=== PATIENT | male | born 1965 | race African-American/Black ===

== ENCOUNTER 2021-07-02 11:01 | Inpatient (IN) | payer BC ==
[2021-07-02] MEDS ORDERED: BENZOCAINE/MENTHOL (CHLORASEPTIC ) LOZENGE MM PRN (13:07)
[2021-07-02] MEDS ORDERED: ACETAMINOPHEN 325 MG TABLET (FP) PO PRN ×2 (13:07)
[2021-07-02] MEDS ORDERED: DICYCLOMINE HCL 10 MG CAPSULE PO PRN (13:07)
[2021-07-02] MEDS ORDERED: ONDANSETRON *ODT* 4 MG TABLET SL PRN (13:07)
[2021-07-02] MEDS ORDERED: MAGNESIUM HYDROX 2400MG/30ML ORAL SUSPENSION 30 ML CUP PO PRN (13:07)
[2021-07-02] MEDS ORDERED: MAG HYDROX/AL HYDROX/SIMETH 30 ML UNIT-DOSE CUP PO PRN (13:07)
[2021-07-02] MEDS ORDERED: BISMUTH SUBSALICYLATE 262 MG/15 ML BTL PO PRN (13:07)
[2021-07-02] MEDS ORDERED: NALOXONE HCL (KLOXXADO) 8 MG SPRAY NS PRN (13:07)
[2021-07-02] MEDS ORDERED: chlordiazePOXIDE HCL 25 MG CAPSULE PO PRN (13:07)
[2021-07-02] MEDS ORDERED: MAGNESIUM CITRATE 300 ML BOTTLE PO PRN (13:07)
[2021-07-02] MEDS ORDERED: LOPERAMIDE HCL 2 MG CAPSULE PO PRN (13:07)
[2021-07-02 13:50] VITALS: BMI 30.6
[2021-07-02] MEDS: FAMOTIDINE 20 MG TABLET PO SCH ×2 (15:34→22:24)
[2021-07-02] MEDS: hydrOXYzine PAMOATE 25 MG CAPSULE (FP) PO SCH ×3 (15:34→22:24)
[2021-07-02] MEDS: IBUPROFEN 400 MG TABLET (FP) PO PRN (15:35)
[2021-07-02] MEDS: amLODIPine BESYLATE 5 MG TABLET (FP) PO SCH (15:35)
[2021-07-02] MEDS: HYDROCHLOROTHIAZIDE 12.5 MG CAPSULE (FP) PO SCH (15:56)
[2021-07-02] MEDS: NICOTINE 10 MG CARTRIDGE (INHALER) IH PRN (16:01)
[2021-07-02] MEDS: chlordiazePOXIDE HCL 25 MG CAPSULE PO SCH ×2 (18:14→22:24)
[2021-07-02] MEDS: THIAMINE HCL 100 MG TABLET (FP) PO SCH (22:24)
[2021-07-02] MEDS: MELATONIN 5 MG TABLETS PO SCH (22:25)
[2021-07-03] MEDS: hydrOXYzine PAMOATE 25 MG CAPSULE (FP) PO SCH ×5 (06:00→23:39)
[2021-07-03] MEDS: chlordiazePOXIDE HCL 25 MG CAPSULE PO SCH ×4 (06:00→23:39)
[2021-07-03 09:56] LABS: HEMATOCRIT 37.8 % (35.4-49); HEMOGLOBIN 12.5 GM/dL (11.7-16.9); MCH 27.8 pg (25.7-33.7); MCHC 32.9 g/dl (32.0-35.9); MEAN CELL VOLUME 84.5 fl (80-96); MEAN PLT VOLUME 9.8 fl (7.5-11.1); PLATELET COUNT 198 10^3/uL (134-434); RBC 4.47 M/mm3 (4.00-5.60); RDW 15.1 % (11.9-15.9); WHITE BLOOD COUNT 4.8 K/mm3 (4.0-10.0)
[2021-07-03 10:23] LABS: BLOOD UREA NITROGEN 10.6 mg/dL (7-18); TOT PROT 7.5 g/dl (6.4-8.2)
[2021-07-03 10:24] LABS: CALCIUM 9.3 mg/dL (8.5-10.1)
[2021-07-03 10:25] LABS: BILIRUBIN,TOTAL 0.3 mg/dL (0.2-1)
[2021-07-03] MEDS: FAMOTIDINE 20 MG TABLET PO SCH ×2 (10:47→23:39)
[2021-07-03] MEDS: amLODIPine BESYLATE 5 MG TABLET (FP) PO SCH (10:47)
[2021-07-03] MEDS: HYDROCHLOROTHIAZIDE 12.5 MG CAPSULE (FP) PO SCH (10:47)
[2021-07-03] MEDS: PRENATAL VITAMINS W/ FOLIC ACID TABLET (FP) PO SCH (10:48)
[2021-07-03] MEDS: ARIPiprazole 10 MG TABLET PO SCH (10:49)
[2021-07-03] MEDS: METHOCARBAMOL 500 MG TABLET PO PRN (17:58)
[2021-07-03] MEDS: MELATONIN 5 MG TABLETS PO SCH (23:39)
[2021-07-03] MEDS: THIAMINE HCL 100 MG TABLET (FP) PO SCH (23:39)
[2021-07-04] MEDS: IBUPROFEN 400 MG TABLET (FP) PO PRN (05:06)
[2021-07-04] MEDS: chlordiazePOXIDE HCL 25 MG CAPSULE PO SCH ×4 (05:06→23:10)
[2021-07-04] MEDS: hydrOXYzine PAMOATE 25 MG CAPSULE (FP) PO SCH ×5 (05:06→23:10)
[2021-07-04] MEDS: PRENATAL VITAMINS W/ FOLIC ACID TABLET (FP) PO SCH (10:28)
[2021-07-04] MEDS: ARIPiprazole 10 MG TABLET PO SCH (10:28)
[2021-07-04] MEDS: amLODIPine BESYLATE 5 MG TABLET (FP) PO SCH (10:28)
[2021-07-04] MEDS: FAMOTIDINE 20 MG TABLET PO SCH ×2 (10:28→23:09)
[2021-07-04] MEDS: METHOCARBAMOL 500 MG TABLET PO PRN (10:28)
[2021-07-04] MEDS: HYDROCHLOROTHIAZIDE 12.5 MG CAPSULE (FP) PO SCH (10:28)
[2021-07-04 14:10] LABS: SARS-CoV-2 NAA Not Detected (Not Detected)
[2021-07-04] MEDS: NICOTINE 10 MG CARTRIDGE (INHALER) IH PRN (18:00)
[2021-07-04] MEDS: MELATONIN 5 MG TABLETS PO SCH (23:09)
[2021-07-04] MEDS: THIAMINE HCL 100 MG TABLET (FP) PO SCH (23:10)
[2021-07-05] MEDS ORDERED: chlordiazePOXIDE HCL 10 MG CAPSULE PO PRN
[2021-07-05] MEDS: chlordiazePOXIDE HCL 10 MG CAPSULE PO SCH ×4 (05:33→22:58)
[2021-07-05] MEDS: hydrOXYzine PAMOATE 25 MG CAPSULE (FP) PO SCH ×5 (05:33→22:58)
[2021-07-05] MEDS: PRENATAL VITAMINS W/ FOLIC ACID TABLET (FP) PO SCH (10:16)
[2021-07-05] MEDS: FAMOTIDINE 20 MG TABLET PO SCH ×2 (10:17→22:50)
[2021-07-05] MEDS: HYDROCHLOROTHIAZIDE 12.5 MG CAPSULE (FP) PO SCH (10:17)
[2021-07-05] MEDS: amLODIPine BESYLATE 5 MG TABLET (FP) PO SCH (10:17)
[2021-07-05] MEDS: ARIPiprazole 10 MG TABLET PO SCH (10:17)
[2021-07-05] MEDS: IBUPROFEN 400 MG TABLET (FP) PO PRN (10:17)
[2021-07-05] MEDS: METHOCARBAMOL 500 MG TABLET PO PRN (10:18)
[2021-07-05] MEDS: NICOTINE 10 MG CARTRIDGE (INHALER) IH PRN (10:20)
[2021-07-05] MEDS ORDERED: amLODIPine BESYLATE 5 MG TABLET (FP) PO ONE (17:00)
[2021-07-05] MEDS: MELATONIN 5 MG TABLETS PO SCH (22:49)
[2021-07-05] MEDS: THIAMINE HCL 100 MG TABLET (FP) PO SCH (22:50)
[2021-07-06] MEDS ORDERED: chlordiazePOXIDE HCL 10 MG CAPSULE PO SCH (05:00)
[2021-07-06] MEDS: hydrOXYzine PAMOATE 25 MG CAPSULE (FP) PO SCH ×3 (05:27→13:51)
[2021-07-06] MEDS: IBUPROFEN 400 MG TABLET (FP) PO PRN (05:29)
[2021-07-06] MEDS: NICOTINE 10 MG CARTRIDGE (INHALER) IH PRN ×2 (06:09→10:07)
[2021-07-06] MEDS ORDERED: amLODIPine BESYLATE 5 MG TABLET (FP) PO SCH (10:00)
[2021-07-06] MEDS: ARIPiprazole 10 MG TABLET PO SCH (10:02)
[2021-07-06] MEDS: HYDROCHLOROTHIAZIDE 12.5 MG CAPSULE (FP) PO SCH (10:02)
[2021-07-06] MEDS: PRENATAL VITAMINS W/ FOLIC ACID TABLET (FP) PO SCH (10:02)
[2021-07-06] MEDS: FAMOTIDINE 20 MG TABLET PO SCH (10:02)
[2021-07-06] MEDS: METHOCARBAMOL 500 MG TABLET PO PRN (10:05)
[2021-07-06] MEDS ORDERED: VALSARTAN 40 MG TABLET PO SCH (12:30)
[2021-07-06 13:10] VITALS: BP 135/77; PULSE 77; TEMP 97.3
[2021-07-06 18:03] LABS: EPI CELLS 2 /uL (0-25.1); HYALINE CASTS 0 /uL (0-3.1); PH,URINE 8.5 (5.0-8.0); URINE APPEARANCE CLEAR; URINE BACTERIA 10 /uL (0-1359); URINE BILIRUBIN NEGATIVE (NEGATIVE); URINE COLOR YELLOW; URINE GLUCOSE (UA) NEGATIVE (NEGATIVE); URINE KETONE NEGATIVE (NEGATIVE); URINE LEUK ESTERASE NEGATIVE (NEGATIVE); URINE NITRITE NEGATIVE (NEGATIVE); URINE PROTEIN NEGATIVE (NEGATIVE); URINE RBC 4 /uL (0-23.9); URINE UROBILINOGEN 0.2 mg/dL (0.2-1.0); URINE WBC 5 /uL (0-25.8)
[2021-07-07] MEDS ORDERED: chlordiazePOXIDE HCL 10 MG CAPSULE PO ONE (05:00)
== END 2021-07-06 15:02 | disposition home or self-care (01) | DRG 774 ==
LOC: YASAS 11:01 → Y6N 14:38
PROVIDERS: ADMIT Allergy & Immunology; ATTEND Surgery
PROC: HZ2ZZZZ Detoxification Services for Substance Abuse Treatment (ICD-10-PCS; principal; 2021-07-02)
DX: F10.230 Alcohol dependence with withdrawal, uncomplicated (principal); F14.10 Cocaine abuse, uncomplicated; F16.20 Hallucinogen dependence, uncomplicated; F12.20 Cannabis dependence, uncomplicated; F17.210 Nicotine dependence, cigarettes, uncomplicated; F25.9 Schizoaffective disorder, unspecified; F31.9 Bipolar disorder, unspecified; I10 Essential (primary) hypertension; K21.9 Gastro-esophageal reflux disease without esophagitis
CPT/HCPCS: 36415; 80053; 81003; 85027; 86780; C9803-CS; Q0162; U0003; U0005

== ENCOUNTER 2021-09-16 15:07 | Inpatient (IN) | payer BC ==
[2021-09-16 16:29] VITALS: BMI 29.5
[2021-09-16] MEDS ORDERED: METHOCARBAMOL 500 MG TABLET PO PRN (18:42)
[2021-09-16] MEDS ORDERED: MAG HYDROX/AL HYDROX/SIMETH 30 ML UNIT-DOSE CUP PO PRN (18:42)
[2021-09-16] MEDS ORDERED: BENZOCAINE/MENTHOL (CHLORASEPTIC ) LOZENGE MM PRN (18:42)
[2021-09-16] MEDS ORDERED: DICYCLOMINE HCL 10 MG CAPSULE PO PRN (18:42)
[2021-09-16] MEDS ORDERED: ONDANSETRON *ODT* 4 MG TABLET SL PRN (18:42)
[2021-09-16] MEDS ORDERED: ACETAMINOPHEN 325 MG TABLET (FP) PO PRN ×2 (18:42)
[2021-09-16] MEDS ORDERED: IBUPROFEN 400 MG TABLET (FP) PO PRN (18:42)
[2021-09-16] MEDS ORDERED: MAGNESIUM HYDROX 2400MG/30ML ORAL SUSPENSION 30 ML CUP PO PRN (18:42)
[2021-09-16] MEDS ORDERED: LOPERAMIDE HCL 2 MG CAPSULE PO PRN (18:42)
[2021-09-16] MEDS ORDERED: BISMUTH SUBSALICYLATE 524 MG/30 ML PO PRN (18:42)
[2021-09-16] MEDS ORDERED: MAGNESIUM CITRATE 300 ML BOTTLE PO PRN (18:42)
[2021-09-16] MEDS ORDERED: chlordiazePOXIDE HCL 25 MG CAPSULE PO PRN (18:42)
[2021-09-16] MEDS ORDERED: chlordiazePOXIDE HCL 25 MG CAPSULE ONE (19:58)
[2021-09-16] MEDS: chlordiazePOXIDE HCL 25 MG CAPSULE PO SCH ×2 (20:00→22:09)
[2021-09-16] MEDS ORDERED: DIVALPROEX SODIUM 500 MG TABLET E.C. PO ONE (22:00)
[2021-09-16] MEDS: MELATONIN 5 MG TABLETS PO SCH (22:11)
[2021-09-16] MEDS: hydrOXYzine PAMOATE 25 MG CAPSULE (FP) PO SCH (22:11)
[2021-09-16] MEDS: THIAMINE HCL 100 MG TABLET (FP) PO SCH (22:11)
[2021-09-16] MEDS: NICOTINE 10 MG CARTRIDGE (INHALER) IH PRN (22:15)
[2021-09-17] MEDS: chlordiazePOXIDE HCL 25 MG CAPSULE PO SCH ×4 (06:07→22:51)
[2021-09-17] MEDS: hydrOXYzine PAMOATE 25 MG CAPSULE (FP) PO SCH ×5 (06:08→22:51)
[2021-09-17 10:34] LABS: HEMATOCRIT 35.4 % (35.4-49); MCH 28.1 pg (25.7-33.7); MCHC 33.9 g/dl (32.0-35.9); MEAN CELL VOLUME 82.7 fl (80-96); MEAN PLT VOLUME 8.8 fl (7.5-11.1); PLATELET COUNT 242 10^3/uL (134-434); RBC 4.28 M/mm3 (4.00-5.60); RDW 14.7 % (11.9-15.9); WHITE BLOOD COUNT 6.1 K/mm3 (4.0-10.0)
[2021-09-17] MEDS: amLODIPine BESYLATE 10 MG TABLET (FP) PO SCH (10:36)
[2021-09-17] MEDS: LOSARTAN POTASSIUM 50 MG TABLET PO SCH (10:36)
[2021-09-17] MEDS: PRENATAL VITAMINS W/ FOLIC ACID TABLET (FP) PO SCH (10:36)
[2021-09-17] MEDS: NICOTINE 10 MG CARTRIDGE (INHALER) IH PRN ×2 (10:36→17:48)
[2021-09-17] MEDS: IBUPROFEN 600 MG TABLET (FP) PO PRN ×2 (10:40→17:48)
[2021-09-17 10:46] LABS: ALBUMIN 3.7 g/dl (3.4-5.0); CALCIUM 9.1 mg/dL (8.5-10.1)
[2021-09-17 10:49] LABS: BLOOD UREA NITROGEN 16.8 mg/dL (7-18)
[2021-09-17 10:50] LABS: BILIRUBIN,TOTAL 0.2 mg/dL (0.2-1)
[2021-09-17 10:52] LABS: CREATININE 0.9 mg/dL (0.55-1.3)
[2021-09-17] MEDS: MELATONIN 5 MG TABLETS PO SCH (22:50)
[2021-09-17] MEDS: DIVALPROEX SODIUM 500 MG TABLET E.C. PO SCH (22:51)
[2021-09-17] MEDS: THIAMINE HCL 100 MG TABLET (FP) PO SCH (22:51)
[2021-09-18] MEDS: chlordiazePOXIDE HCL 25 MG CAPSULE PO SCH ×2 (06:07→10:11)
[2021-09-18] MEDS: hydrOXYzine PAMOATE 25 MG CAPSULE (FP) PO SCH ×2 (06:07→10:11)
[2021-09-18 06:58] VITALS: RESP 18
[2021-09-18 09:16] VITALS: BP 148/89; PULSE 73; TEMP 97.7
[2021-09-18] MEDS: amLODIPine BESYLATE 10 MG TABLET (FP) PO SCH (10:11)
[2021-09-18] MEDS: DIVALPROEX SODIUM 500 MG TABLET E.C. PO SCH (10:11)
[2021-09-18] MEDS: PRENATAL VITAMINS W/ FOLIC ACID TABLET (FP) PO SCH (10:11)
[2021-09-18] MEDS: LOSARTAN POTASSIUM 50 MG TABLET PO SCH (10:11)
[2021-09-18] MEDS: IBUPROFEN 600 MG TABLET (FP) PO PRN (10:13)
[2021-09-19] MEDS ORDERED: chlordiazePOXIDE HCL 10 MG CAPSULE PO PRN
[2021-09-19] MEDS ORDERED: chlordiazePOXIDE HCL 10 MG CAPSULE PO SCH (05:00)
[2021-09-20] MEDS ORDERED: chlordiazePOXIDE HCL 10 MG CAPSULE PO SCH (05:00)
[2021-09-21] MEDS ORDERED: chlordiazePOXIDE HCL 10 MG CAPSULE PO ONE (05:00)
== END 2021-09-18 12:39 | disposition left against medical advice (07) | DRG 770 ==
LOC: YASAS 15:07 → Y3N 21:10
PROVIDERS: ADMIT Allergy & Immunology; ATTEND Surgery
PROC: HZ2ZZZZ Detoxification Services for Substance Abuse Treatment (ICD-10-PCS; principal; 2021-09-16)
DX: F10.230 Alcohol dependence with withdrawal, uncomplicated (principal); F16.20 Hallucinogen dependence, uncomplicated; F12.20 Cannabis dependence, uncomplicated; F17.210 Nicotine dependence, cigarettes, uncomplicated; F31.9 Bipolar disorder, unspecified; I10 Essential (primary) hypertension; Z87.828 Personal history of other (healed) physical injury and trauma; Z56.0 Unemployment, unspecified
CPT/HCPCS: 36415; 80053; 80164; 85027; 86780; 87811; C9803-CS; U0003; U0005

== ENCOUNTER 2021-11-27 08:53 | Inpatient (IN) | payer BC ==
[2021-11-27 09:25] VITALS: BMI 28.2
[2021-11-27] MEDS ORDERED: NICOTINE POLACRILEX 2 MG GUM BUC PRN (09:46)
[2021-11-27] MEDS ORDERED: NALOXONE HCL (KLOXXADO) 8 MG SPRAY NS PRN (09:46)
[2021-11-27] MEDS ORDERED: MAGNESIUM CITRATE 300 ML BOTTLE PO PRN (09:46)
[2021-11-27] MEDS ORDERED: METHOCARBAMOL 500 MG TABLET PO PRN (09:46)
[2021-11-27] MEDS ORDERED: LOPERAMIDE HCL 2 MG CAPSULE PO PRN (09:46)
[2021-11-27] MEDS ORDERED: ACETAMINOPHEN 325 MG TABLET (FP) PO PRN ×2 (09:46)
[2021-11-27] MEDS ORDERED: DICYCLOMINE HCL 10 MG CAPSULE PO PRN (09:46)
[2021-11-27] MEDS ORDERED: BENZOCAINE/MENTHOL (CHLORASEPTIC ) LOZENGE MM PRN (09:46)
[2021-11-27] MEDS ORDERED: IBUPROFEN 600 MG TABLET (FP) PO PRN (09:46)
[2021-11-27] MEDS ORDERED: MAG HYDROX/AL HYDROX/SIMETH 30 ML UNIT-DOSE CUP PO PRN (09:46)
[2021-11-27] MEDS ORDERED: IBUPROFEN 400 MG TABLET (FP) PO PRN (09:46)
[2021-11-27] MEDS ORDERED: MAGNESIUM HYDROX 2400MG/30ML ORAL SUSPENSION 30 ML CUP PO PRN (09:46)
[2021-11-27] MEDS ORDERED: BISMUTH SUBSALICYLATE 262 MG/15 ML BTL PO PRN (09:46)
[2021-11-27] MEDS ORDERED: ONDANSETRON *ODT* 4 MG TABLET SL PRN (09:46)
[2021-11-27] MEDS: LOSARTAN POTASSIUM 50 MG TABLET PO SCH (11:21)
[2021-11-27] MEDS: hydrOXYzine PAMOATE 25 MG CAPSULE (FP) PO SCH ×4 (11:22→22:56)
[2021-11-27] MEDS: amLODIPine BESYLATE 10 MG TABLET (FP) PO SCH (11:22)
[2021-11-27] MEDS: PRENATAL VITAMINS W/ FOLIC ACID TABLET (FP) PO SCH (11:22)
[2021-11-27 14:31] LABS: HEMATOCRIT 38.3 % (35.4-49); HEMOGLOBIN 12.4 GM/dL (11.7-16.9); MCH 27.1 pg (25.7-33.7); MCHC 32.3 g/dl (32.0-35.9); MEAN CELL VOLUME 84.2 fl (80-96); MEAN PLT VOLUME 9.7 fl (7.5-11.1); PLATELET COUNT 256 10^3/uL (134-434); RBC 4.55 M/mm3 (4.00-5.60); RDW 15.1 % (11.9-15.9); WHITE BLOOD COUNT 7.2 K/mm3 (4.0-10.0)
[2021-11-27 15:09] LABS: ALBUMIN 3.8 g/dl (3.4-5.0); CALCIUM 9.2 mg/dL (8.5-10.1)
[2021-11-27 15:10] LABS: BLOOD UREA NITROGEN 14.7 mg/dL (7-18)
[2021-11-27 15:14] LABS: BILIRUBIN,TOTAL 0.2 mg/dL (0.2-1)
[2021-11-27] MEDS ORDERED: chlordiazePOXIDE HCL 25 MG CAPSULE PO PRN (16:55)
[2021-11-27] MEDS: chlordiazePOXIDE HCL 25 MG CAPSULE PO SCH ×2 (17:30→22:55)
[2021-11-27] MEDS ORDERED: MELATONIN 5 MG TABLETS PO SCH (22:00)
[2021-11-27] MEDS: DIVALPROEX SODIUM 500 MG TABLET E.C. PO SCH (22:56)
[2021-11-27] MEDS: traZODone HCL 50 MG TABLET (FP) PO SCH (22:56)
[2021-11-27] MEDS: THIAMINE HCL 100 MG TABLET (FP) PO SCH (22:56)
[2021-11-28] MEDS: hydrOXYzine PAMOATE 25 MG CAPSULE (FP) PO SCH ×5 (05:55→22:53)
[2021-11-28] MEDS: chlordiazePOXIDE HCL 25 MG CAPSULE PO SCH ×4 (05:56→22:54)
[2021-11-28] MEDS: NICOTINE 10 MG CARTRIDGE (INHALER) IH PRN (06:18)
[2021-11-28] MEDS: ARIPiprazole 10 MG TABLET PO SCH (10:43)
[2021-11-28] MEDS: amLODIPine BESYLATE 10 MG TABLET (FP) PO SCH (10:43)
[2021-11-28] MEDS: DIVALPROEX SODIUM 500 MG TABLET E.C. PO SCH ×2 (10:43→22:54)
[2021-11-28] MEDS: LOSARTAN POTASSIUM 50 MG TABLET PO SCH (10:43)
[2021-11-28] MEDS: PRENATAL VITAMINS W/ FOLIC ACID TABLET (FP) PO SCH (10:43)
[2021-11-28] MEDS: traZODone HCL 50 MG TABLET (FP) PO SCH (22:53)
[2021-11-28] MEDS: THIAMINE HCL 100 MG TABLET (FP) PO SCH (22:55)
[2021-11-29] MEDS: hydrOXYzine PAMOATE 25 MG CAPSULE (FP) PO SCH ×5 (07:32→23:22)
[2021-11-29] MEDS: chlordiazePOXIDE HCL 10 MG CAPSULE PO SCH ×4 (07:32→23:23)
[2021-11-29] MEDS: LOSARTAN POTASSIUM 50 MG TABLET PO SCH (10:27)
[2021-11-29] MEDS: ARIPiprazole 10 MG TABLET PO SCH (10:27)
[2021-11-29] MEDS: PRENATAL VITAMINS W/ FOLIC ACID TABLET (FP) PO SCH (10:27)
[2021-11-29] MEDS: amLODIPine BESYLATE 10 MG TABLET (FP) PO SCH (10:27)
[2021-11-29] MEDS: DIVALPROEX SODIUM 500 MG TABLET E.C. PO SCH ×2 (10:27→23:22)
[2021-11-29] MEDS: THIAMINE HCL 100 MG TABLET (FP) PO SCH (23:22)
[2021-11-29] MEDS: traZODone HCL 50 MG TABLET (FP) PO SCH (23:22)
[2021-11-29] MEDS: NICOTINE 10 MG CARTRIDGE (INHALER) IH PRN (23:36)
[2021-11-30] MEDS ORDERED: chlordiazePOXIDE HCL 10 MG CAPSULE PO PRN
[2021-11-30] MEDS ORDERED: chlordiazePOXIDE 5 MG CAPSULE ONE (04:05)
[2021-11-30] MEDS: hydrOXYzine PAMOATE 25 MG CAPSULE (FP) PO SCH ×5 (05:57→23:30)
[2021-11-30] MEDS: chlordiazePOXIDE HCL 10 MG CAPSULE PO SCH ×2 (05:57→18:41)
[2021-11-30] MEDS: LOSARTAN POTASSIUM 50 MG TABLET PO SCH (10:37)
[2021-11-30] MEDS: ARIPiprazole 10 MG TABLET PO SCH (10:37)
[2021-11-30] MEDS: PRENATAL VITAMINS W/ FOLIC ACID TABLET (FP) PO SCH (10:37)
[2021-11-30] MEDS: DIVALPROEX SODIUM 500 MG TABLET E.C. PO SCH ×2 (10:37→23:31)
[2021-11-30] MEDS: amLODIPine BESYLATE 10 MG TABLET (FP) PO SCH (10:37)
[2021-11-30] MEDS: traZODone HCL 50 MG TABLET (FP) PO SCH (23:31)
[2021-11-30] MEDS: THIAMINE HCL 100 MG TABLET (FP) PO SCH (23:33)
[2021-12-01] MEDS ORDERED: chlordiazePOXIDE HCL 10 MG CAPSULE PO ONE (05:00)
[2021-12-01] MEDS: hydrOXYzine PAMOATE 25 MG CAPSULE (FP) PO SCH (05:59)
[2021-12-01 09:13] VITALS: BP 168/89; PULSE 72; RESP 19; TEMP 97.2
== END 2021-12-01 09:45 | disposition home or self-care (01) | DRG 774 ==
LOC: YASAS 08:53 → Y3N 09:56
PROVIDERS: ADMIT Allergy & Immunology; ATTEND Surgery
PROC: HZ2ZZZZ Detoxification Services for Substance Abuse Treatment (ICD-10-PCS; principal; 2021-11-27)
DX: F10.230 Alcohol dependence with withdrawal, uncomplicated (principal); F14.20 Cocaine dependence, uncomplicated; F12.20 Cannabis dependence, uncomplicated; F17.210 Nicotine dependence, cigarettes, uncomplicated; F25.9 Schizoaffective disorder, unspecified; F31.9 Bipolar disorder, unspecified; F19.24 Other psychoactive substance dependence with psychoactive substance-induced mood disorder; U07.1 COVID-19; G47.00 Insomnia, unspecified; I10 Essential (primary) hypertension; Z91.14 Patient's other noncompliance with medication regimen
CPT/HCPCS: 36415; 80053; 80164; 85027; 86780; 87811; C9803-CS; U0003; U0005

== ENCOUNTER 2022-04-07 12:31 | Inpatient (IN) | payer BC ==
[2022-04-07 13:09] VITALS: BMI 31.2
[2022-04-07] MEDS ORDERED: LOPERAMIDE HCL 2 MG CAPSULE PO PRN (14:53)
[2022-04-07] MEDS ORDERED: POLYETHYLENE GLYCOL (HEALTHYLAX) 3350 17 GM PACKET PO PRN (14:53)
[2022-04-07] MEDS ORDERED: ACETAMINOPHEN 325 MG TABLET (FP) PO PRN (14:53)
[2022-04-07] MEDS ORDERED: guaiFENesin 200 MG/10 ML 10 ML UNIT-DOSE CUPS PO PRN (14:53)
[2022-04-07] MEDS ORDERED: BENZOCAINE/MENTHOL (CHLORASEPTIC ) LOZENGE MM PRN (14:53)
[2022-04-07] MEDS ORDERED: MAGNESIUM HYDROX 2400MG/30ML ORAL SUSPENSION 30 ML CUP PO PRN (14:53)
[2022-04-07] MEDS ORDERED: P-EPHED 60MG/TRIPROLIDI 2.5MG TABLET PO PRN (14:53)
[2022-04-07] MEDS ORDERED: NICOTINE POLACRILEX 2 MG GUM BC PRN (14:53)
[2022-04-07] MEDS ORDERED: NICOTINE 7 MG/24 HOURS TOPICAL PATCH TD PRN (14:53)
[2022-04-07] MEDS: THIAMINE HCL 100 MG TABLET (FP) PO SCH (22:01)
[2022-04-07] MEDS: MELATONIN 5 MG TABLETS PO SCH (22:01)
[2022-04-08] MEDS: MAG HYDROX/AL HYDROX/SIMETH 30 ML UNIT-DOSE CUP PO PRN (06:32)
[2022-04-08] MEDS: IBUPROFEN 400 MG TABLET (FP) PO PRN (06:33)
[2022-04-08] MEDS: PRENATAL VITAMINS W/ FOLIC ACID TABLET (FP) PO SCH (09:57)
[2022-04-08] MEDS: NICOTINE 10 MG CARTRIDGE (INHALER) IH PRN (09:58)
[2022-04-08] MEDS: amLODIPine BESYLATE 10 MG TABLET (FP) PO SCH (11:26)
[2022-04-08] MEDS: metoPROLOL SUCCINATE 25 MG TAB.SR.24H (FP) PO SCH (11:26)
[2022-04-08 12:12] LABS: HEMATOCRIT 34.4 % (35.4-49); HEMOGLOBIN 11.6 GM/dL (11.7-16.9); MCH 28.2 pg (25.7-33.7); MCHC 33.9 g/dl (32.0-35.9); MEAN CELL VOLUME 83.3 fl (80-96); PLATELET COUNT 206 10^3/uL (134-434); RBC 4.12 M/mm3 (4.00-5.60); WHITE BLOOD COUNT 5.7 K/mm3 (4.0-10.0)
[2022-04-08 12:36] LABS: ALBUMIN 3.4 g/dl (3.4-5.0)
[2022-04-08 12:37] LABS: BLOOD UREA NITROGEN 17.9 mg/dL (7-18)
[2022-04-08 12:40] LABS: CREATININE 1.1 mg/dL (0.55-1.3)
[2022-04-08 12:41] LABS: BILIRUBIN,TOTAL 0.3 mg/dL (0.2-1); TOT PROT 6.6 g/dl (6.4-8.2)
[2022-04-08 13:19] LABS: SYPHILIS W/ RPR CONF NON-REACTIVE (NONREACTIVE)
[2022-04-08 16:50] LABS: EPI CELLS 8 /uL (0-25.1); HYALINE CASTS 0 /uL (0-3.1); PH,URINE 8.5 (5.0-8.0); URINE APPEARANCE CLEAR; URINE BACTERIA 43 /uL (0-1359); URINE BILIRUBIN NEGATIVE (NEGATIVE); URINE COLOR YELLOW; URINE GLUCOSE (UA) NEGATIVE (NEGATIVE); URINE KETONE NEGATIVE (NEGATIVE); URINE LEUK ESTERASE TRACE (NEGATIVE); URINE NITRITE NEGATIVE (NEGATIVE); URINE PROTEIN NEGATIVE (NEGATIVE); URINE RBC 29 /uL (0-23.9); URINE WBC 14 /uL (0-25.8)
[2022-04-08] MEDS: THIAMINE HCL 100 MG TABLET (FP) PO SCH (22:54)
[2022-04-08] MEDS: MELATONIN 5 MG TABLETS PO SCH (22:54)
[2022-04-09] MEDS: NICOTINE 10 MG CARTRIDGE (INHALER) IH PRN (08:40)
[2022-04-09] MEDS: PRENATAL VITAMINS W/ FOLIC ACID TABLET (FP) PO SCH (09:34)
[2022-04-09] MEDS: amLODIPine BESYLATE 10 MG TABLET (FP) PO SCH (09:36)
[2022-04-09] MEDS: LOSARTAN POTASSIUM 50 MG TABLET PO SCH (09:36)
[2022-04-09] MEDS: TAMSULOSIN HCL 0.4 MG CAP PO SCH (09:37)
[2022-04-09] MEDS: metoPROLOL SUCCINATE 25 MG TAB.SR.24H (FP) PO SCH (09:55)
[2022-04-09] MEDS ORDERED: LOSARTAN POTASSIUM 50 MG TABLET PO SCH (10:00)
[2022-04-09] MEDS: MELATONIN 5 MG TABLETS PO SCH ×2 (21:54→22:18)
[2022-04-09] MEDS: THIAMINE HCL 100 MG TABLET (FP) PO SCH (21:55)
[2022-04-10] MEDS: NICOTINE 10 MG CARTRIDGE (INHALER) IH PRN ×2 (08:06→12:50)
[2022-04-10] MEDS: TAMSULOSIN HCL 0.4 MG CAP PO SCH (09:47)
[2022-04-10] MEDS: metoPROLOL SUCCINATE 25 MG TAB.SR.24H (FP) PO SCH (09:47)
[2022-04-10] MEDS: amLODIPine BESYLATE 10 MG TABLET (FP) PO SCH (09:47)
[2022-04-10] MEDS: PRENATAL VITAMINS W/ FOLIC ACID TABLET (FP) PO SCH (09:47)
[2022-04-10] MEDS: LOSARTAN POTASSIUM 50 MG TABLET PO SCH (09:48)
[2022-04-10] MEDS ORDERED: cloNIDine HCL 0.1 MG TABLET PO PRN (11:41)
[2022-04-10 12:53] VITALS: RESP 18
[2022-04-10] MEDS: THIAMINE HCL 100 MG TABLET (FP) PO SCH (21:35)
[2022-04-10] MEDS: MELATONIN 5 MG TABLETS PO SCH (21:35)
[2022-04-10] MEDS: hydrOXYzine PAMOATE 25 MG CAPSULE (FP) PO PRN (21:35)
[2022-04-11] MEDS: IBUPROFEN 400 MG TABLET (FP) PO PRN (06:35)
[2022-04-11] MEDS: NICOTINE 10 MG CARTRIDGE (INHALER) IH PRN (06:36)
[2022-04-11] MEDS: ARIPiprazole 10 MG TABLET PO SCH (10:10)
[2022-04-11] MEDS: amLODIPine BESYLATE 10 MG TABLET (FP) PO SCH (10:10)
[2022-04-11] MEDS: metoPROLOL SUCCINATE 25 MG TAB.SR.24H (FP) PO SCH (10:10)
[2022-04-11] MEDS: TAMSULOSIN HCL 0.4 MG CAP PO SCH (10:10)
[2022-04-11] MEDS: LOSARTAN POTASSIUM 50 MG TABLET PO SCH (10:10)
[2022-04-11] MEDS: CITALOPRAM HYDROBROMIDE 10 MG TABLET PO SCH (10:10)
[2022-04-11] MEDS: PRENATAL VITAMINS W/ FOLIC ACID TABLET (FP) PO SCH (10:10)
[2022-04-11] MEDS: MAG HYDROX/AL HYDROX/SIMETH 30 ML UNIT-DOSE CUP PO PRN (16:29)
[2022-04-11] MEDS: THIAMINE HCL 100 MG TABLET (FP) PO SCH (21:03)
[2022-04-11] MEDS: MELATONIN 5 MG TABLETS PO SCH (21:03)
[2022-04-12] MEDS: hydrOXYzine PAMOATE 25 MG CAPSULE (FP) PO PRN (03:40)
[2022-04-12] MEDS: NICOTINE 10 MG CARTRIDGE (INHALER) IH PRN (06:34)
[2022-04-12 07:02] VITALS: TEMP 97.3
[2022-04-12 08:58] VITALS: BP 151/81; PULSE 70
[2022-04-12] MEDS: LOSARTAN POTASSIUM 50 MG TABLET PO SCH (09:35)
[2022-04-12] MEDS: PRENATAL VITAMINS W/ FOLIC ACID TABLET (FP) PO SCH (09:35)
[2022-04-12] MEDS: amLODIPine BESYLATE 10 MG TABLET (FP) PO SCH (09:35)
[2022-04-12] MEDS: TAMSULOSIN HCL 0.4 MG CAP PO SCH (09:35)
[2022-04-12] MEDS: ARIPiprazole 10 MG TABLET PO SCH (09:35)
[2022-04-12] MEDS: metoPROLOL SUCCINATE 25 MG TAB.SR.24H (FP) PO SCH (09:36)
[2022-04-12] MEDS: CITALOPRAM HYDROBROMIDE 10 MG TABLET PO SCH (09:36)
== END 2022-04-12 09:38 | disposition home or self-care (01) | DRG 772 ==
LOC: YASAS 12:31 → Y3W 19:54
PROVIDERS: ADMIT Allergy & Immunology; ATTEND Allergy & Immunology
PROC: HZ42ZZZ Group Counseling for Substance Abuse Treatment, Cognitive-Behavioral (ICD-10-PCS; principal; 2022-04-07)
DX: F16.20 Hallucinogen dependence, uncomplicated (principal); F17.210 Nicotine dependence, cigarettes, uncomplicated; F31.9 Bipolar disorder, unspecified; I10 Essential (primary) hypertension; N40.0 Benign prostatic hyperplasia without lower urinary tract symptoms; E66.9 Obesity, unspecified; Z68.31 Body mass index [BMI] 31.0-31.9, adult; Z86.16 Personal history of COVID-19
CPT/HCPCS: 36415; 80053; 81003; 85027; 86780; 86803; 87811; 93005; 93010; C9803-CS; U0003; U0005

== ENCOUNTER 2022-11-22 10:04 | Inpatient (IN) | payer BC ==
[2022-11-22 10:33] VITALS: BMI 33.3
[2022-11-22] MEDS ORDERED: NALOXONE HCL (KLOXXADO) 8 MG SPRAY NS PRN (11:38)
[2022-11-22] MEDS ORDERED: BISMUTH SUBSALICYLATE 262 MG/15 ML BTL PO PRN (11:38)
[2022-11-22] MEDS ORDERED: DICYCLOMINE HCL 10 MG CAPSULE PO PRN (11:38)
[2022-11-22] MEDS ORDERED: MAGNESIUM HYDROX 2400MG/30ML ORAL SUSPENSION 30 ML CUP PO PRN (11:38)
[2022-11-22] MEDS ORDERED: NALOXONE HCL 0.4 MG/ML VIAL IM PRN (11:38)
[2022-11-22] MEDS ORDERED: BENZONATATE 200 MG CAPSULE PO PRN (11:38)
[2022-11-22] MEDS ORDERED: IBUPROFEN 400 MG TABLET (FP) PO PRN (11:38)
[2022-11-22] MEDS ORDERED: guaiFENesin 600 MG TABLET.ER (FP) PO PRN (11:38)
[2022-11-22] MEDS ORDERED: NICOTINE POLACRILEX 4 MG GUM BUC PRN (11:38)
[2022-11-22] MEDS ORDERED: MAG HYDROX/AL HYDROX/SIMETH 30 ML UNIT-DOSE CUP PO PRN (11:38)
[2022-11-22] MEDS ORDERED: ACETAMINOPHEN 325 MG TABLET (FP) PO PRN (11:38)
[2022-11-22] MEDS ORDERED: hydrOXYzine PAMOATE 25 MG CAPSULE (FP) PO PRN (11:38)
[2022-11-22] MEDS ORDERED: POLYETHYLENE GLYCOL (HEALTHYLAX) 3350 17 GM PACKET PO PRN (11:38)
[2022-11-22] MEDS ORDERED: LOPERAMIDE HCL 2 MG CAPSULE PO PRN (11:38)
[2022-11-22] MEDS ORDERED: BENZOCAINE/MENTHOL (CHLORASEPTIC ) LOZENGE MM PRN (11:38)
[2022-11-22] MEDS ORDERED: METHOCARBAMOL 500 MG TABLET PO PRN (11:38)
[2022-11-22] MEDS: PRENATAL VITAMINS W/ FOLIC ACID TABLET (FP) PO SCH (12:29)
[2022-11-22] MEDS: ONDANSETRON *ODT* 4 MG TABLET SL PRN (12:29)
[2022-11-22] MEDS ORDERED: chlordiazePOXIDE HCL 25 MG CAPSULE PO PRN (13:35)
[2022-11-22] MEDS: chlordiazePOXIDE HCL 25 MG CAPSULE PO SCH ×2 (16:57→22:24)
[2022-11-22] MEDS: THIAMINE HCL 100 MG TABLET (FP) PO SCH (22:23)
[2022-11-22] MEDS: MELATONIN 5 MG TABLETS PO SCH (22:24)
[2022-11-23] MEDS: chlordiazePOXIDE HCL 25 MG CAPSULE PO SCH ×4 (05:36→22:29)
[2022-11-23] MEDS: amLODIPine BESYLATE 10 MG TABLET (FP) PO SCH (10:20)
[2022-11-23] MEDS: ARIPiprazole 10 MG TABLET PO SCH (10:20)
[2022-11-23] MEDS: LOSARTAN POTASSIUM 50 MG TABLET PO SCH (10:20)
[2022-11-23] MEDS: PRENATAL VITAMINS W/ FOLIC ACID TABLET (FP) PO SCH (10:20)
[2022-11-23] MEDS: metoPROLOL SUCCINATE 25 MG TAB.SR.24H (FP) PO SCH (10:23)
[2022-11-23] MEDS: IBUPROFEN 600 MG TABLET (FP) PO PRN ×2 (10:23→22:32)
[2022-11-23 12:09] LABS: HEMATOCRIT 32.5 % (35.4-49); MCH 27.5 pg (25.7-33.7); MCHC 33.7 g/dl (32.0-35.9); MEAN CELL VOLUME 81.5 fl (80-96); PLATELET COUNT 221 10^3/uL (134-434); RBC 3.99 M/mm3 (4.00-5.60); RDW 15.1 % (11.9-15.9); WHITE BLOOD COUNT 4.2 K/mm3 (4.0-10.0)
[2022-11-23 13:11] LABS: POTASSIUM 4.1 mmol/L (3.5-5.1)
[2022-11-23 13:12] LABS: ALBUMIN 3.2 g/dl (3.4-5.0); BLOOD UREA NITROGEN 10.2 mg/dL (7-18); CALCIUM 8.4 mg/dL (8.5-10.1)
[2022-11-23 13:16] LABS: CREATININE 0.9 mg/dL (0.55-1.3)
[2022-11-23 13:18] LABS: BILIRUBIN,TOTAL 0.3 mg/dL (0.2-1); TOT PROT 6.1 g/dl (6.4-8.2)
[2022-11-23] MEDS: ONDANSETRON *ODT* 4 MG TABLET SL PRN (17:12)
[2022-11-23] MEDS: THIAMINE HCL 100 MG TABLET (FP) PO SCH (22:29)
[2022-11-23] MEDS: MELATONIN 5 MG TABLETS PO SCH (22:30)
[2022-11-24] MEDS ORDERED: chlordiazePOXIDE HCL 10 MG CAPSULE PO PRN
[2022-11-24] MEDS: chlordiazePOXIDE HCL 10 MG CAPSULE PO SCH ×2 (05:23→10:02)
[2022-11-24] MEDS: IBUPROFEN 600 MG TABLET (FP) PO PRN (05:25)
[2022-11-24] MEDS: LOSARTAN POTASSIUM 50 MG TABLET PO SCH (10:01)
[2022-11-24] MEDS: ARIPiprazole 10 MG TABLET PO SCH (10:02)
[2022-11-24] MEDS: PRENATAL VITAMINS W/ FOLIC ACID TABLET (FP) PO SCH (10:02)
[2022-11-24] MEDS: amLODIPine BESYLATE 10 MG TABLET (FP) PO SCH (10:02)
[2022-11-24] MEDS: metoPROLOL SUCCINATE 25 MG TAB.SR.24H (FP) PO SCH (10:03)
[2022-11-24] MEDS: LORazepam 0.5 MG TABLET PO SCH ×2 (13:38→23:13)
[2022-11-24] MEDS: THIAMINE HCL 100 MG TABLET (FP) PO SCH (23:13)
[2022-11-24] MEDS: MELATONIN 5 MG TABLETS PO SCH (23:13)
[2022-11-25] MEDS ORDERED: chlordiazePOXIDE HCL 10 MG CAPSULE PO SCH (05:00)
[2022-11-25] MEDS ORDERED: LORazepam 0.5 MG TABLET PO SCH (06:00)
[2022-11-25 09:04] VITALS: BP 133/74; PULSE 62; RESP 16; TEMP 98.3
[2022-11-25] MEDS: PRENATAL VITAMINS W/ FOLIC ACID TABLET (FP) PO SCH (10:59)
[2022-11-25] MEDS: amLODIPine BESYLATE 10 MG TABLET (FP) PO SCH (10:59)
[2022-11-25] MEDS: LOSARTAN POTASSIUM 50 MG TABLET PO SCH (10:59)
[2022-11-25] MEDS: ARIPiprazole 10 MG TABLET PO SCH (10:59)
[2022-11-25] MEDS: metoPROLOL SUCCINATE 25 MG TAB.SR.24H (FP) PO SCH (11:00)
[2022-11-26] MEDS ORDERED: chlordiazePOXIDE HCL 10 MG CAPSULE PO ONE (05:00)
[2022-11-26] MEDS ORDERED: LORazepam 0.5 MG TABLET PO ONE (06:00)
== END 2022-11-25 12:46 | disposition home or self-care (01) | DRG 774 ==
LOC: YASAS 10:04 → Y6N 11:17
PROVIDERS: ADMIT Allergy & Immunology; ATTEND Surgery
PROC: HZ2ZZZZ Detoxification Services for Substance Abuse Treatment (ICD-10-PCS; principal; 2022-11-22)
DX: F10.230 Alcohol dependence with withdrawal, uncomplicated (principal); F14.20 Cocaine dependence, uncomplicated; F16.10 Hallucinogen abuse, uncomplicated; F12.20 Cannabis dependence, uncomplicated; F17.210 Nicotine dependence, cigarettes, uncomplicated; F20.9 Schizophrenia, unspecified; F31.9 Bipolar disorder, unspecified; F19.282 Other psychoactive substance dependence with psychoactive substance-induced sleep disorder; U07.1 COVID-19; E66.9 Obesity, unspecified; Z68.33 Body mass index [BMI] 33.0-33.9, adult
CPT/HCPCS: 36415; 80053; 83036; 84450; 85027; 86780; 87635; 87811; Q0162

== ENCOUNTER 2023-01-12 10:31 | Inpatient (IN) | payer BC ==
[2023-01-12 10:56] VITALS: BMI 31.7
[2023-01-12] MEDS ORDERED: guaiFENesin 600 MG TABLET.ER (FP) PO PRN (11:23)
[2023-01-12] MEDS ORDERED: BENZONATATE 200 MG CAPSULE PO PRN (11:23)
[2023-01-12] MEDS ORDERED: BISMUTH SUBSALICYLATE 262 MG/15 ML BTL PO PRN (11:23)
[2023-01-12] MEDS ORDERED: IBUPROFEN 400 MG TABLET (FP) PO PRN (11:23)
[2023-01-12] MEDS ORDERED: ACETAMINOPHEN 325 MG TABLET (FP) PO PRN (11:23)
[2023-01-12] MEDS ORDERED: BENZOCAINE/MENTHOL (CHLORASEPTIC ) LOZENGE MM PRN (11:23)
[2023-01-12] MEDS ORDERED: MAG HYDROX/AL HYDROX/SIMETH 30 ML UNIT-DOSE CUP PO PRN (11:23)
[2023-01-12] MEDS ORDERED: LOPERAMIDE HCL 2 MG CAPSULE PO PRN (11:23)
[2023-01-12] MEDS ORDERED: ONDANSETRON *ODT* 4 MG TABLET SL PRN (11:23)
[2023-01-12] MEDS ORDERED: DICYCLOMINE HCL 10 MG CAPSULE PO PRN (11:23)
[2023-01-12] MEDS ORDERED: NALOXONE HCL (KLOXXADO) 8 MG SPRAY NS PRN (11:23)
[2023-01-12] MEDS ORDERED: POLYETHYLENE GLYCOL (HEALTHYLAX) 3350 17 GM PACKET PO PRN (11:23)
[2023-01-12] MEDS ORDERED: MAGNESIUM HYDROX 2400MG/30ML ORAL SUSPENSION 30 ML CUP PO PRN (11:23)
[2023-01-12] MEDS ORDERED: NALOXONE HCL 0.4 MG/ML VIAL IM PRN (11:23)
[2023-01-12] MEDS ORDERED: chlordiazePOXIDE HCL 25 MG CAPSULE PO PRN (11:28)
[2023-01-12] MEDS ORDERED: amLODIPine BESYLATE 10 MG TABLET (FP) PO ONE (12:44)
[2023-01-12] MEDS ORDERED: amLODIPine BESYLATE 5 MG TABLET (FP) ONE (14:22)
[2023-01-12] MEDS ORDERED: chlordiazePOXIDE HCL 25 MG CAPSULE ONE (14:22)
[2023-01-12] MEDS: chlordiazePOXIDE HCL 25 MG CAPSULE PO SCH ×3 (14:27→23:00)
[2023-01-12] MEDS: MELATONIN 5 MG TABLETS PO SCH (23:00)
[2023-01-12] MEDS: THIAMINE HCL 100 MG TABLET (FP) PO SCH (23:00)
[2023-01-13] MEDS: chlordiazePOXIDE HCL 25 MG CAPSULE PO SCH ×4 (05:38→22:21)
[2023-01-13] MEDS: metoPROLOL SUCCINATE 25 MG TAB.SR.24H (FP) PO SCH (10:13)
[2023-01-13] MEDS: LOSARTAN POTASSIUM 50 MG TABLET PO SCH (10:13)
[2023-01-13] MEDS: amLODIPine BESYLATE 10 MG TABLET (FP) PO SCH (10:13)
[2023-01-13] MEDS: PRENATAL VITAMINS W/ FOLIC ACID TABLET (FP) PO SCH (10:13)
[2023-01-13] MEDS: IBUPROFEN 600 MG TABLET (FP) PO PRN ×2 (10:14→18:07)
[2023-01-13] MEDS: METHOCARBAMOL 500 MG TABLET PO PRN ×2 (10:14→22:21)
[2023-01-13] MEDS: ARIPiprazole 10 MG TABLET PO SCH (10:34)
[2023-01-13 11:58] LABS: BLOOD UREA NITROGEN 12.4 mg/dL (7-18); CALCIUM 9.3 mg/dL (8.5-10.1)
[2023-01-13 11:59] LABS: ALBUMIN 3.6 g/dl (3.4-5.0)
[2023-01-13 12:03] LABS: BILIRUBIN,TOTAL 0.5 mg/dL (0.2-1); TOT PROT 6.9 g/dl (6.4-8.2)
[2023-01-13 12:06] LABS: HEMATOCRIT 38.8 % (35.4-49); HEMOGLOBIN 13.3 GM/dL (11.7-16.9); MCH 27.6 pg (25.7-33.7); MCHC 34.4 g/dl (32.0-35.9); MEAN CELL VOLUME 80.4 fl (80-96); MEAN PLT VOLUME 8.8 fl (7.5-11.1); PLATELET COUNT 274 10^3/uL (134-434); RBC 4.83 M/mm3 (4.00-5.60); RDW 14.6 % (11.9-15.9); WHITE BLOOD COUNT 5.4 K/mm3 (4.0-10.0)
[2023-01-13] MEDS: THIAMINE HCL 100 MG TABLET (FP) PO SCH (22:21)
[2023-01-13] MEDS: hydrOXYzine PAMOATE 25 MG CAPSULE (FP) PO PRN (22:21)
[2023-01-13] MEDS: MELATONIN 5 MG TABLETS PO SCH (22:21)
[2023-01-14] MEDS: chlordiazePOXIDE HCL 25 MG CAPSULE PO SCH ×4 (05:27→22:19)
[2023-01-14] MEDS: NICOTINE POLACRILEX 2 MG GUM BUC PRN (05:30)
[2023-01-14] MEDS: LOSARTAN POTASSIUM 50 MG TABLET PO SCH (11:09)
[2023-01-14] MEDS: metoPROLOL SUCCINATE 25 MG TAB.SR.24H (FP) PO SCH (11:10)
[2023-01-14] MEDS: PRENATAL VITAMINS W/ FOLIC ACID TABLET (FP) PO SCH (11:10)
[2023-01-14] MEDS: amLODIPine BESYLATE 10 MG TABLET (FP) PO SCH (11:11)
[2023-01-14] MEDS: ARIPiprazole 10 MG TABLET PO SCH (11:11)
[2023-01-14] MEDS: THIAMINE HCL 100 MG TABLET (FP) PO SCH (22:19)
[2023-01-14] MEDS: MELATONIN 5 MG TABLETS PO SCH (22:19)
[2023-01-15] MEDS ORDERED: chlordiazePOXIDE HCL 10 MG CAPSULE PO PRN
[2023-01-15] MEDS: chlordiazePOXIDE HCL 10 MG CAPSULE PO SCH ×4 (05:37→22:28)
[2023-01-15] MEDS: metoPROLOL SUCCINATE 25 MG TAB.SR.24H (FP) PO SCH (10:12)
[2023-01-15] MEDS: PRENATAL VITAMINS W/ FOLIC ACID TABLET (FP) PO SCH (10:13)
[2023-01-15] MEDS: amLODIPine BESYLATE 10 MG TABLET (FP) PO SCH (10:13)
[2023-01-15] MEDS: LOSARTAN POTASSIUM 50 MG TABLET PO SCH (11:37)
[2023-01-15] MEDS: ARIPiprazole 10 MG TABLET PO SCH (11:37)
[2023-01-15] MEDS: MELATONIN 5 MG TABLETS PO SCH (22:26)
[2023-01-15] MEDS: THIAMINE HCL 100 MG TABLET (FP) PO SCH (22:26)
[2023-01-16] MEDS: chlordiazePOXIDE HCL 10 MG CAPSULE PO SCH ×2 (05:40→17:55)
[2023-01-16] MEDS: NICOTINE POLACRILEX 2 MG GUM BUC PRN ×2 (05:42→10:27)
[2023-01-16] MEDS: metoPROLOL SUCCINATE 25 MG TAB.SR.24H (FP) PO SCH (10:25)
[2023-01-16] MEDS: PRENATAL VITAMINS W/ FOLIC ACID TABLET (FP) PO SCH (10:25)
[2023-01-16] MEDS: amLODIPine BESYLATE 10 MG TABLET (FP) PO SCH (10:25)
[2023-01-16] MEDS: LOSARTAN POTASSIUM 50 MG TABLET PO SCH (10:25)
[2023-01-16] MEDS: ARIPiprazole 10 MG TABLET PO SCH (10:26)
[2023-01-16] MEDS: MELATONIN 5 MG TABLETS PO SCH ×2 (23:02→23:35)
[2023-01-16] MEDS: THIAMINE HCL 100 MG TABLET (FP) PO SCH (23:02)
[2023-01-16] MEDS: hydrOXYzine PAMOATE 25 MG CAPSULE (FP) PO PRN (23:35)
[2023-01-16] MEDS: METHOCARBAMOL 500 MG TABLET PO PRN (23:35)
[2023-01-17] MEDS ORDERED: chlordiazePOXIDE HCL 10 MG CAPSULE PO ONE (05:00)
[2023-01-17] MEDS: NICOTINE POLACRILEX 2 MG GUM BUC PRN (06:23)
[2023-01-17] MEDS: ARIPiprazole 10 MG TABLET PO SCH (10:14)
[2023-01-17] MEDS: LOSARTAN POTASSIUM 50 MG TABLET PO SCH (10:14)
[2023-01-17] MEDS: amLODIPine BESYLATE 10 MG TABLET (FP) PO SCH (10:14)
[2023-01-17] MEDS: metoPROLOL SUCCINATE 25 MG TAB.SR.24H (FP) PO SCH (10:14)
[2023-01-17] MEDS: PRENATAL VITAMINS W/ FOLIC ACID TABLET (FP) PO SCH (10:14)
[2023-01-17 13:50] VITALS: BP 147/90; PULSE 73; RESP 20; TEMP 97.7
== END 2023-01-17 13:58 | disposition other institution (70) | DRG 774 ==
LOC: YASAS 10:31 → Y3N 13:26
PROVIDERS: ADMIT Allergy & Immunology; ATTEND Surgery
PROC: HZ2ZZZZ Detoxification Services for Substance Abuse Treatment (ICD-10-PCS; principal; 2023-01-12)
DX: F10.230 Alcohol dependence with withdrawal, uncomplicated (principal); F14.20 Cocaine dependence, uncomplicated; F16.20 Hallucinogen dependence, uncomplicated; F12.20 Cannabis dependence, uncomplicated; F17.210 Nicotine dependence, cigarettes, uncomplicated; F25.9 Schizoaffective disorder, unspecified; I10 Essential (primary) hypertension; E66.09 Other obesity due to excess calories; Z68.33 Body mass index [BMI] 33.0-33.9, adult
CPT/HCPCS: 36415; 80053; 80307; 85027; 86780; 87635; 87811

== ENCOUNTER 2023-01-17 14:08 | Inpatient (IN) | payer BC ==
[2023-01-17 14:21] VITALS: RESP 18
[2023-01-17] MEDS ORDERED: BENZOCAINE/MENTHOL (CHLORASEPTIC ) LOZENGE MM PRN (15:41)
[2023-01-17] MEDS ORDERED: METHOCARBAMOL 500 MG TABLET PO PRN (15:41)
[2023-01-17] MEDS ORDERED: BENZONATATE 200 MG CAPSULE PO PRN (15:41)
[2023-01-17] MEDS ORDERED: MAG HYDROX/AL HYDROX/SIMETH 30 ML UNIT-DOSE CUP PO PRN (15:41)
[2023-01-17] MEDS ORDERED: MAGNESIUM HYDROX 2400MG/30ML ORAL SUSPENSION 30 ML CUP PO PRN (15:41)
[2023-01-17] MEDS ORDERED: IBUPROFEN 400 MG TABLET (FP) PO PRN (15:41)
[2023-01-17] MEDS ORDERED: LOPERAMIDE HCL 2 MG CAPSULE PO PRN (15:41)
[2023-01-17] MEDS ORDERED: guaiFENesin 600 MG TABLET.ER (FP) PO PRN (15:41)
[2023-01-17] MEDS ORDERED: POLYETHYLENE GLYCOL (HEALTHYLAX) 3350 17 GM PACKET PO PRN (15:41)
[2023-01-17] MEDS ORDERED: IBUPROFEN 600 MG TABLET (FP) PO PRN (15:41)
[2023-01-17] MEDS ORDERED: ACETAMINOPHEN 325 MG TABLET (FP) PO PRN (15:41)
[2023-01-17] MEDS ORDERED: NALOXONE HCL (KLOXXADO) 8 MG SPRAY NS PRN (15:41)
[2023-01-17] MEDS ORDERED: NALOXONE HCL 0.4 MG/ML VIAL IVPUSH PRN (15:41)
[2023-01-17] MEDS ORDERED: hydrOXYzine PAMOATE 25 MG CAPSULE (FP) PO PRN (15:41)
[2023-01-17] MEDS ORDERED: COLLOIDAL OATMEAL 1 BAR EACH TP PRN (15:41)
[2023-01-17] MEDS ORDERED: AMMONIUM LACTATE 12% LOTION 225 GM BOTTLE TP PRN (15:41)
[2023-01-17] MEDS ORDERED: NICOTINE POLACRILEX 4 MG GUM BUC PRN (15:41)
[2023-01-17] MEDS ORDERED: NICOTINE 14 MG/24 HOURS TOPICAL PATCH TD PRN (15:41)
[2023-01-17] MEDS: THIAMINE HCL 100 MG TABLET (FP) PO SCH (23:48)
[2023-01-17] MEDS: MELATONIN 5 MG TABLETS PO SCH (23:48)
[2023-01-18] MEDS ORDERED: CITALOPRAM HYDROBROMIDE 10 MG TABLET PO SCH (10:00)
[2023-01-18] MEDS: PRENATAL VITAMINS W/ FOLIC ACID TABLET (FP) PO SCH (10:11)
[2023-01-18] MEDS: ARIPiprazole 10 MG TABLET PO SCH (10:11)
[2023-01-18] MEDS: metoPROLOL SUCCINATE 25 MG TAB.SR.24H (FP) PO SCH (10:12)
[2023-01-18] MEDS: LOSARTAN POTASSIUM 50 MG TABLET PO SCH (10:12)
[2023-01-18] MEDS: amLODIPine BESYLATE 10 MG TABLET (FP) PO SCH (10:12)
[2023-01-18] MEDS: MELATONIN 5 MG TABLETS PO SCH (21:14)
[2023-01-18] MEDS: THIAMINE HCL 100 MG TABLET (FP) PO SCH (21:14)
[2023-01-19] MEDS: LOSARTAN POTASSIUM 50 MG TABLET PO SCH (09:49)
[2023-01-19] MEDS: PRENATAL VITAMINS W/ FOLIC ACID TABLET (FP) PO SCH (09:49)
[2023-01-19] MEDS: amLODIPine BESYLATE 10 MG TABLET (FP) PO SCH (09:49)
[2023-01-19] MEDS: metoPROLOL SUCCINATE 25 MG TAB.SR.24H (FP) PO SCH (09:49)
[2023-01-19] MEDS: ARIPiprazole 10 MG TABLET PO SCH (09:49)
[2023-01-19] MEDS: THIAMINE HCL 100 MG TABLET (FP) PO SCH (21:18)
[2023-01-19] MEDS: MELATONIN 5 MG TABLETS PO SCH (21:18)
[2023-01-20] MEDS ORDERED: ONDANSETRON *ODT* 4 MG TABLET SL ONE (02:25)
[2023-01-20 07:20] VITALS: TEMP 97.5
[2023-01-20] MEDS: LOSARTAN POTASSIUM 50 MG TABLET PO SCH (10:18)
[2023-01-20] MEDS: metoPROLOL SUCCINATE 25 MG TAB.SR.24H (FP) PO SCH (10:18)
[2023-01-20] MEDS: PRENATAL VITAMINS W/ FOLIC ACID TABLET (FP) PO SCH (10:18)
[2023-01-20] MEDS: ARIPiprazole 10 MG TABLET PO SCH (10:18)
[2023-01-20] MEDS: amLODIPine BESYLATE 10 MG TABLET (FP) PO SCH (10:18)
[2023-01-20] MEDS: THIAMINE HCL 100 MG TABLET (FP) PO SCH (21:13)
[2023-01-20] MEDS: MELATONIN 5 MG TABLETS PO SCH (21:13)
[2023-01-21 09:26] VITALS: BP 159/89; PULSE 68
== END 2023-01-21 09:43 | disposition left against medical advice (07) | DRG 770 ==
LOC: YASAS 14:08 → Y3W 14:10
PROVIDERS: ADMIT Allergy & Immunology; ATTEND Psychiatry & Neurology Pain Medicine
PROC: HZ42ZZZ Group Counseling for Substance Abuse Treatment, Cognitive-Behavioral (ICD-10-PCS; principal; 2023-01-17)
DX: F10.20 Alcohol dependence, uncomplicated (principal); F16.20 Hallucinogen dependence, uncomplicated; F12.20 Cannabis dependence, uncomplicated; F17.210 Nicotine dependence, cigarettes, uncomplicated; F20.9 Schizophrenia, unspecified; F31.9 Bipolar disorder, unspecified; I10 Essential (primary) hypertension; N40.0 Benign prostatic hyperplasia without lower urinary tract symptoms; R79.89 Other specified abnormal findings of blood chemistry
CPT/HCPCS: 36415; 82140; 86803; Q0162

== ENCOUNTER 2023-03-07 10:07 | Inpatient (IN) | payer BC ==
[2023-03-07 10:25] VITALS: BMI 33.0
[2023-03-07] MEDS ORDERED: BENZONATATE 200 MG CAPSULE PO PRN (11:52)
[2023-03-07] MEDS ORDERED: BISMUTH SUBSALICYLATE 262 MG/15 ML BTL PO PRN (11:52)
[2023-03-07] MEDS ORDERED: MAG HYDROX/AL HYDROX/SIMETH 30 ML UNIT-DOSE CUP PO PRN (11:52)
[2023-03-07] MEDS ORDERED: NALOXONE HCL 0.4 MG/ML VIAL IM PRN (11:52)
[2023-03-07] MEDS ORDERED: ACETAMINOPHEN 325 MG TABLET (FP) PO PRN (11:52)
[2023-03-07] MEDS ORDERED: BENZOCAINE/MENTHOL (CHLORASEPTIC ) LOZENGE MM PRN (11:52)
[2023-03-07] MEDS ORDERED: LOPERAMIDE HCL 2 MG CAPSULE PO PRN (11:52)
[2023-03-07] MEDS ORDERED: MAGNESIUM HYDROX 2400MG/30ML ORAL SUSPENSION 30 ML CUP PO PRN (11:52)
[2023-03-07] MEDS ORDERED: POLYETHYLENE GLYCOL (HEALTHYLAX) 3350 17 GM PACKET PO PRN (11:52)
[2023-03-07] MEDS ORDERED: IBUPROFEN 400 MG TABLET (FP) PO PRN (11:52)
[2023-03-07] MEDS ORDERED: ONDANSETRON *ODT* 4 MG TABLET SL PRN (11:52)
[2023-03-07] MEDS ORDERED: LORazepam 1 MG TABLET PO PRN (11:52)
[2023-03-07] MEDS ORDERED: IBUPROFEN 600 MG TABLET (FP) PO PRN (11:52)
[2023-03-07] MEDS ORDERED: guaiFENesin 600 MG TABLET.ER (FP) PO PRN (11:52)
[2023-03-07] MEDS ORDERED: DICYCLOMINE HCL 10 MG CAPSULE PO PRN (11:52)
[2023-03-07] MEDS ORDERED: NALOXONE HCL (KLOXXADO) 8 MG SPRAY NS PRN (11:52)
[2023-03-07] MEDS: NICOTINE 14 MG/24 HOURS TOPICAL PATCH TD SCH (14:22)
[2023-03-07] MEDS: PRENATAL VITAMINS W/ FOLIC ACID TABLET (FP) PO SCH (14:22)
[2023-03-07] MEDS ORDERED: NICOTINE 14 MG/24 HOURS TOPICAL PATCH TD ONE (14:32)
[2023-03-07] MEDS ORDERED: ONDANSETRON *ODT* 4 MG TABLET ONE (14:32)
[2023-03-07] MEDS ORDERED: LORazepam 1 MG TABLET ONE (14:33)
[2023-03-07] MEDS ORDERED: amLODIPine BESYLATE 10 MG TABLET (FP) PO ONE (15:23)
[2023-03-07] MEDS: LORazepam 2 MG TABLET PO SCH ×2 (17:21→22:18)
[2023-03-07] MEDS: THIAMINE HCL 100 MG TABLET (FP) PO SCH (22:18)
[2023-03-07] MEDS: MELATONIN 5 MG TABLETS PO SCH (22:18)
[2023-03-07] MEDS: DIVALPROEX SODIUM 500 MG TABLET E.C. PO SCH (22:18)
[2023-03-08] MEDS: LORazepam 2 MG TABLET PO SCH ×4 (05:52→22:06)
[2023-03-08] MEDS: PRENATAL VITAMINS W/ FOLIC ACID TABLET (FP) PO SCH (10:21)
[2023-03-08] MEDS: METHOCARBAMOL 500 MG TABLET PO PRN (10:21)
[2023-03-08] MEDS: hydrOXYzine PAMOATE 25 MG CAPSULE (FP) PO PRN (10:21)
[2023-03-08] MEDS: GABAPENTIN 300 MG CAPSULE PO SCH (10:22)
[2023-03-08] MEDS: amLODIPine BESYLATE 10 MG TABLET (FP) PO SCH (10:22)
[2023-03-08] MEDS: DIVALPROEX SODIUM 500 MG TABLET E.C. PO SCH ×2 (10:22→22:05)
[2023-03-08] MEDS: LOSARTAN POTASSIUM 50 MG TABLET PO SCH (10:22)
[2023-03-08] MEDS: NICOTINE 14 MG/24 HOURS TOPICAL PATCH TD SCH (10:24)
[2023-03-08] MEDS: metoPROLOL SUCCINATE 25 MG TAB.SR.24H (FP) PO SCH (10:28)
[2023-03-08] MEDS: ARIPiprazole 10 MG TABLET PO SCH (11:38)
[2023-03-08 11:39] LABS: CHLORIDE 108 mmol/L (98-107); POTASSIUM 4.8 mmol/L (3.5-5.1); SODIUM 138 mmol/L (136-145)
[2023-03-08 11:44] LABS: ALBUMIN 3.4 g/dl (3.4-5.0); ANION GAP 7 mmol/L (4-13); BLOOD UREA NITROGEN 13.5 mg/dL (7-18); CALCIUM 8.8 mg/dL (8.5-10.1); CO2 23 mmol/L (21-32); GLUCOSE,RANDOM 107 mg/dL (74-106)
[2023-03-08 11:46] LABS: CREATININE 0.9 mg/dL (0.55-1.3); HEMATOCRIT 38.4 % (35.4-49); HEMOGLOBIN 12.8 GM/dL (11.7-16.9); MCH 27.1 pg (25.7-33.7); MCHC 33.4 g/dl (32.0-35.9); MEAN CELL VOLUME 81.3 fl (80-96); MEAN PLT VOLUME 8.8 fl (7.5-11.1); PLATELET COUNT 275 10^3/uL (134-434); RBC 4.73 M/mm3 (4.00-5.60); RDW 14.7 % (11.9-15.9); SGPT/ALT 43 U/L (13-61); WHITE BLOOD COUNT 5.2 K/mm3 (4.0-10.0)
[2023-03-08 11:47] LABS: ALK PHOS 68 U/L (45-117); SGOT/AST 29 U/L (15-37)
[2023-03-08 11:48] LABS: BILIRUBIN,TOTAL 0.6 mg/dL (0.2-1); TOT PROT 7.1 g/dl (6.4-8.2)
[2023-03-08] MEDS: MELATONIN 5 MG TABLETS PO SCH (22:05)
[2023-03-08] MEDS: THIAMINE HCL 100 MG TABLET (FP) PO SCH (22:05)
[2023-03-09] MEDS: LORazepam 1 MG TABLET PO SCH ×4 (05:29→22:18)
[2023-03-09] MEDS: PRENATAL VITAMINS W/ FOLIC ACID TABLET (FP) PO SCH (10:23)
[2023-03-09] MEDS: amLODIPine BESYLATE 10 MG TABLET (FP) PO SCH (10:23)
[2023-03-09] MEDS: DIVALPROEX SODIUM 500 MG TABLET E.C. PO SCH ×2 (10:24→22:18)
[2023-03-09] MEDS: ARIPiprazole 10 MG TABLET PO SCH (10:24)
[2023-03-09] MEDS: GABAPENTIN 300 MG CAPSULE PO SCH (10:24)
[2023-03-09] MEDS: LOSARTAN POTASSIUM 50 MG TABLET PO SCH (10:24)
[2023-03-09] MEDS: metoPROLOL SUCCINATE 25 MG TAB.SR.24H (FP) PO SCH (10:24)
[2023-03-09] MEDS: NICOTINE 14 MG/24 HOURS TOPICAL PATCH TD SCH (10:25)
[2023-03-09] MEDS: METHOCARBAMOL 500 MG TABLET PO PRN (10:25)
[2023-03-09] MEDS: hydrOXYzine PAMOATE 25 MG CAPSULE (FP) PO PRN (10:25)
[2023-03-09] MEDS: LACTULOSE 20 GM/30 ML UDC (FOR ORAL USE ONLY) PO SCH ×4 (10:27→22:19)
[2023-03-09] MEDS: MELATONIN 5 MG TABLETS PO SCH (22:19)
[2023-03-09] MEDS: THIAMINE HCL 100 MG TABLET (FP) PO SCH (22:19)
[2023-03-10] MEDS ORDERED: LORazepam 0.5 MG TABLET PO PRN
[2023-03-10] MEDS: LORazepam 0.5 MG TABLET PO SCH ×4 (05:45→22:28)
[2023-03-10] MEDS: ARIPiprazole 10 MG TABLET PO SCH (10:09)
[2023-03-10] MEDS: LACTULOSE 20 GM/30 ML UDC (FOR ORAL USE ONLY) PO SCH ×4 (10:09→22:28)
[2023-03-10] MEDS: DIVALPROEX SODIUM 500 MG TABLET E.C. PO SCH ×2 (10:10→22:28)
[2023-03-10] MEDS: LOSARTAN POTASSIUM 50 MG TABLET PO SCH (10:10)
[2023-03-10] MEDS: PRENATAL VITAMINS W/ FOLIC ACID TABLET (FP) PO SCH (10:10)
[2023-03-10] MEDS: GABAPENTIN 300 MG CAPSULE PO SCH (10:11)
[2023-03-10] MEDS: amLODIPine BESYLATE 10 MG TABLET (FP) PO SCH (10:11)
[2023-03-10] MEDS: NICOTINE 14 MG/24 HOURS TOPICAL PATCH TD SCH (10:12)
[2023-03-10] MEDS: metoPROLOL SUCCINATE 25 MG TAB.SR.24H (FP) PO SCH (10:27)
[2023-03-10] MEDS: MELATONIN 5 MG TABLETS PO SCH (22:29)
[2023-03-10] MEDS: NICOTINE POLACRILEX 2 MG GUM BUC PRN (22:29)
[2023-03-10] MEDS: THIAMINE HCL 100 MG TABLET (FP) PO SCH (22:29)
[2023-03-11] MEDS ORDERED: LORazepam 0.5 MG TABLET PO ONE (05:00)
[2023-03-11] MEDS: hydrOXYzine PAMOATE 25 MG CAPSULE (FP) PO PRN (06:42)
[2023-03-11] MEDS: LACTULOSE 20 GM/30 ML UDC (FOR ORAL USE ONLY) PO SCH ×3 (10:12→17:44)
[2023-03-11] MEDS: PRENATAL VITAMINS W/ FOLIC ACID TABLET (FP) PO SCH (10:12)
[2023-03-11] MEDS: GABAPENTIN 300 MG CAPSULE PO SCH (10:12)
[2023-03-11] MEDS: ARIPiprazole 10 MG TABLET PO SCH (10:12)
[2023-03-11] MEDS: amLODIPine BESYLATE 10 MG TABLET (FP) PO SCH (10:12)
[2023-03-11] MEDS: metoPROLOL SUCCINATE 25 MG TAB.SR.24H (FP) PO SCH (10:12)
[2023-03-11] MEDS: LOSARTAN POTASSIUM 50 MG TABLET PO SCH (10:12)
[2023-03-11] MEDS: DIVALPROEX SODIUM 500 MG TABLET E.C. PO SCH (10:12)
[2023-03-11] MEDS: NICOTINE POLACRILEX 2 MG GUM BUC PRN ×2 (10:14→17:46)
[2023-03-11] MEDS: NICOTINE 14 MG/24 HOURS TOPICAL PATCH TD SCH (10:15)
[2023-03-11 17:48] VITALS: BP 139/88; PULSE 73; RESP 18; TEMP 97.3
== END 2023-03-11 19:09 | disposition other institution (70) | DRG 773 ==
LOC: YASAS 10:07 → Y6N 14:40
PROVIDERS: ADMIT Allergy & Immunology; ATTEND Allergy & Immunology
PROC: HZ2ZZZZ Detoxification Services for Substance Abuse Treatment (ICD-10-PCS; principal; 2023-03-07)
DX: F10.230 Alcohol dependence with withdrawal, uncomplicated (principal); F11.20 Opioid dependence, uncomplicated; F14.20 Cocaine dependence, uncomplicated; F12.20 Cannabis dependence, uncomplicated; F17.210 Nicotine dependence, cigarettes, uncomplicated; F19.282 Other psychoactive substance dependence with psychoactive substance-induced sleep disorder; F31.9 Bipolar disorder, unspecified; G30.9 Alzheimer's disease, unspecified; F02.80 Dementia in other diseases classified elsewhere, unspecified severity, without behavioral disturbance, psychotic disturbance, mood disturbance, and anxiety; N40.0 Benign prostatic hyperplasia without lower urinary tract symptoms; R79.89 Other specified abnormal findings of blood chemistry; Z59.00 Homelessness unspecified
CPT/HCPCS: 36415; 80053; 80307; 82140; 85027; 86780; 87635; Q0162

== ENCOUNTER 2023-03-11 19:30 | Inpatient (IN) | payer BC ==
[2023-03-11] MEDS ORDERED: MAGNESIUM HYDROX 2400MG/30ML ORAL SUSPENSION 30 ML CUP PO PRN (20:32)
[2023-03-11] MEDS ORDERED: guaiFENesin 600 MG TABLET.ER (FP) PO PRN (20:32)
[2023-03-11] MEDS ORDERED: MAG HYDROX/AL HYDROX/SIMETH 30 ML UNIT-DOSE CUP PO PRN (20:32)
[2023-03-11] MEDS ORDERED: POLYETHYLENE GLYCOL (HEALTHYLAX) 3350 17 GM PACKET PO PRN (20:32)
[2023-03-11] MEDS ORDERED: NALOXONE HCL (KLOXXADO) 8 MG SPRAY NS PRN (20:32)
[2023-03-11] MEDS ORDERED: BENZOCAINE/MENTHOL (CHLORASEPTIC ) LOZENGE MM PRN (20:32)
[2023-03-11] MEDS ORDERED: ACETAMINOPHEN 325 MG TABLET (FP) PO PRN (20:32)
[2023-03-11] MEDS ORDERED: LOPERAMIDE HCL 2 MG CAPSULE PO PRN (20:32)
[2023-03-11] MEDS ORDERED: IBUPROFEN 400 MG TABLET (FP) PO PRN (20:32)
[2023-03-11] MEDS ORDERED: BENZONATATE 200 MG CAPSULE PO PRN (20:32)
[2023-03-11] MEDS ORDERED: NALOXONE HCL 0.4 MG/ML VIAL IVPUSH PRN (20:32)
[2023-03-11] MEDS: THIAMINE HCL 100 MG TABLET (FP) PO SCH (21:10)
[2023-03-11] MEDS: DIVALPROEX SODIUM 500 MG TABLET E.C. PO SCH (21:10)
[2023-03-11] MEDS: MELATONIN 5 MG TABLETS PO SCH (21:10)
[2023-03-11] MEDS: NICOTINE POLACRILEX 4 MG GUM BUC PRN (21:10)
[2023-03-12] MEDS: IBUPROFEN 600 MG TABLET (FP) PO PRN (06:06)
[2023-03-12] MEDS: NICOTINE POLACRILEX 4 MG GUM BUC PRN ×3 (06:07→21:20)
[2023-03-12] MEDS: GABAPENTIN 300 MG CAPSULE PO SCH (09:50)
[2023-03-12] MEDS: metoPROLOL SUCCINATE 25 MG TAB.SR.24H (FP) PO SCH (09:50)
[2023-03-12] MEDS: LOSARTAN POTASSIUM 50 MG TABLET PO SCH (09:50)
[2023-03-12] MEDS: DIVALPROEX SODIUM 500 MG TABLET E.C. PO SCH ×2 (09:51→21:20)
[2023-03-12] MEDS: amLODIPine BESYLATE 10 MG TABLET (FP) PO SCH (09:51)
[2023-03-12] MEDS: NICOTINE 14 MG/24 HOURS TOPICAL PATCH TD SCH (09:51)
[2023-03-12] MEDS: ARIPiprazole 10 MG TABLET PO SCH (09:51)
[2023-03-12] MEDS: PRENATAL VITAMINS W/ FOLIC ACID TABLET (FP) PO SCH (09:51)
[2023-03-12] MEDS: MELATONIN 5 MG TABLETS PO SCH (21:20)
[2023-03-12] MEDS: THIAMINE HCL 100 MG TABLET (FP) PO SCH (21:20)
[2023-03-13] MEDS: GABAPENTIN 300 MG CAPSULE PO SCH (10:15)
[2023-03-13] MEDS: amLODIPine BESYLATE 10 MG TABLET (FP) PO SCH (10:15)
[2023-03-13] MEDS: LOSARTAN POTASSIUM 50 MG TABLET PO SCH (10:15)
[2023-03-13] MEDS: DIVALPROEX SODIUM 500 MG TABLET E.C. PO SCH ×2 (10:15→21:07)
[2023-03-13] MEDS: PRENATAL VITAMINS W/ FOLIC ACID TABLET (FP) PO SCH (10:15)
[2023-03-13] MEDS: NICOTINE 14 MG/24 HOURS TOPICAL PATCH TD SCH (10:15)
[2023-03-13] MEDS: ARIPiprazole 10 MG TABLET PO SCH (10:15)
[2023-03-13] MEDS: metoPROLOL SUCCINATE 25 MG TAB.SR.24H (FP) PO SCH (10:15)
[2023-03-13] MEDS: NICOTINE POLACRILEX 4 MG GUM BUC PRN (10:18)
[2023-03-13] MEDS: THIAMINE HCL 100 MG TABLET (FP) PO SCH (21:07)
[2023-03-13] MEDS: MELATONIN 5 MG TABLETS PO SCH (21:07)
[2023-03-14] MEDS: IBUPROFEN 600 MG TABLET (FP) PO PRN
[2023-03-14 05:01] VITALS: BP 144/88; PULSE 67; RESP 18; TEMP 97
== END 2023-03-14 06:55 | disposition home or self-care (01) | DRG 772 ==
LOC: YASAS 19:30 → Y3W 19:31
PROVIDERS: ADMIT Allergy & Immunology; ATTEND Psychiatry & Neurology Pain Medicine
PROC: HZ42ZZZ Group Counseling for Substance Abuse Treatment, Cognitive-Behavioral (ICD-10-PCS; principal; 2023-03-11)
DX: F10.20 Alcohol dependence, uncomplicated (principal); F14.20 Cocaine dependence, uncomplicated; F12.20 Cannabis dependence, uncomplicated; F17.210 Nicotine dependence, cigarettes, uncomplicated
CPT/HCPCS: 36415; 80164; 86803

== ENCOUNTER 2023-04-19 13:18 | Inpatient (IN) | payer BC ==
[2023-04-19 14:47] VITALS: BMI 31.2
[2023-04-19] MEDS ORDERED: NALOXONE HCL (KLOXXADO) 8 MG SPRAY NS PRN (15:44)
[2023-04-19] MEDS ORDERED: NALOXONE HCL 0.4 MG/ML VIAL IM PRN (15:44)
[2023-04-19] MEDS ORDERED: DICYCLOMINE HCL 10 MG CAPSULE PO PRN (15:44)
[2023-04-19] MEDS ORDERED: guaiFENesin 600 MG TABLET.ER (FP) PO PRN (15:44)
[2023-04-19] MEDS ORDERED: ONDANSETRON *ODT* 4 MG TABLET SL PRN (15:44)
[2023-04-19] MEDS ORDERED: MAG HYDROX/AL HYDROX/SIMETH 30 ML UNIT-DOSE CUP PO PRN (15:44)
[2023-04-19] MEDS ORDERED: IBUPROFEN 400 MG TABLET (FP) PO PRN (15:44)
[2023-04-19] MEDS ORDERED: LOPERAMIDE HCL 2 MG CAPSULE PO PRN (15:44)
[2023-04-19] MEDS ORDERED: MAGNESIUM HYDROX 2400MG/30ML ORAL SUSPENSION 30 ML CUP PO PRN (15:44)
[2023-04-19] MEDS ORDERED: BENZOCAINE/MENTHOL (CHLORASEPTIC ) LOZENGE MM PRN (15:44)
[2023-04-19] MEDS ORDERED: ACETAMINOPHEN 325 MG TABLET (FP) PO PRN (15:44)
[2023-04-19] MEDS ORDERED: POLYETHYLENE GLYCOL (HEALTHYLAX) 3350 17 GM PACKET PO PRN (15:44)
[2023-04-19] MEDS ORDERED: BENZONATATE 200 MG CAPSULE PO PRN (15:44)
[2023-04-19] MEDS ORDERED: IBUPROFEN 600 MG TABLET (FP) PO PRN (15:44)
[2023-04-19] MEDS ORDERED: BISMUTH SUBSALICYLATE 524 MG/30 ML PO PRN (15:44)
[2023-04-19] MEDS: PRENATAL VITAMINS W/ FOLIC ACID TABLET (FP) PO SCH (19:23)
[2023-04-19] MEDS: METHOCARBAMOL 500 MG TABLET PO PRN (19:23)
[2023-04-19] MEDS: LORazepam 1 MG TABLET PO PRN (19:23)
[2023-04-19] MEDS: MELATONIN 5 MG TABLETS PO SCH (22:25)
[2023-04-19] MEDS: LORazepam 2 MG TABLET PO SCH (22:25)
[2023-04-19] MEDS: THIAMINE HCL 100 MG TABLET (FP) PO SCH (22:25)
[2023-04-19] MEDS: traZODone HCL 50 MG TABLET (FP) PO SCH (22:27)
[2023-04-20] MEDS: LOSARTAN POTASSIUM 50 MG TABLET PO SCH (10:28)
[2023-04-20] MEDS: amLODIPine BESYLATE 10 MG TABLET (FP) PO SCH (10:29)
[2023-04-20] MEDS: GABAPENTIN 300 MG CAPSULE PO SCH (10:29)
[2023-04-20] MEDS: ARIPiprazole 10 MG TABLET PO SCH (10:29)
[2023-04-20] MEDS: metoPROLOL SUCCINATE 25 MG TAB.SR.24H (FP) PO SCH (10:29)
[2023-04-20 11:08] LABS: HEMATOCRIT 34.1 % (35.4-49); HEMOGLOBIN 11.8 GM/dL (11.7-16.9); MCH 28.1 pg (25.7-33.7); MCHC 34.5 g/dl (32.0-35.9); MEAN CELL VOLUME 81.5 fl (80-96); MEAN PLT VOLUME 8.8 fl (7.5-11.1); PLATELET COUNT 297 10^3/uL (134-434); RBC 4.18 M/mm3 (4.00-5.60); RDW 14.7 % (11.9-15.9); WHITE BLOOD COUNT 5.5 K/mm3 (4.0-10.0)
[2023-04-20 11:35] LABS: CHLORIDE 107 mmol/L (98-107); POTASSIUM 4.3 mmol/L (3.5-5.1); SODIUM 139 mmol/L (136-145)
[2023-04-20 11:38] LABS: ALBUMIN 3.4 g/dl (3.4-5.0); ANION GAP 11 mmol/L (4-13); BLOOD UREA NITROGEN 11.2 mg/dL (7-18); CALCIUM 8.6 mg/dL (8.5-10.1); CO2 21 mmol/L (21-32); GLUCOSE,RANDOM 107 mg/dL (74-106)
[2023-04-20 11:41] LABS: CREATININE 0.9 mg/dL (0.55-1.3); SGOT/AST 44 U/L (15-37); SGPT/ALT 48 U/L (13-61)
[2023-04-20 11:42] LABS: BILIRUBIN,TOTAL 0.4 mg/dL (0.2-1); TOT PROT 6.7 g/dl (6.4-8.2)
[2023-04-20 11:44] LABS: ALK PHOS 60 U/L (45-117)
[2023-04-20] MEDS: hydrOXYzine PAMOATE 25 MG CAPSULE (FP) PO PRN (17:43)
[2023-04-20] MEDS: NICOTINE POLACRILEX 4 MG GUM BUC PRN (17:45)
[2023-04-21] MEDS: LORazepam 1 MG TABLET PO SCH (05:39)
[2023-04-21] MEDS: cloNIDine HCL 0.1 MG TABLET PO ONE (15:25)
[2023-04-21 21:03] VITALS: PULSE 71
[2023-04-22] MEDS ORDERED: LORazepam 0.5 MG TABLET PO PRN
[2023-04-22] MEDS: LORazepam 0.5 MG TABLET PO SCH (05:43)
[2023-04-22 06:42] VITALS: RESP 17; TEMP 97.7
[2023-04-22 07:26] VITALS: BP 157/94
[2023-04-23] MEDS ORDERED: LORazepam 0.5 MG TABLET PO ONE (05:00)
== END 2023-04-22 09:35 | disposition home or self-care (01) | DRG 774 ==
LOC: YASAS 13:18 → Y6N 16:09
PROVIDERS: ADMIT Allergy & Immunology; ATTEND Surgery
PROC: HZ2ZZZZ Detoxification Services for Substance Abuse Treatment (ICD-10-PCS; principal; 2023-04-19)
DX: F10.230 Alcohol dependence with withdrawal, uncomplicated (principal); F14.20 Cocaine dependence, uncomplicated; F16.20 Hallucinogen dependence, uncomplicated; F12.20 Cannabis dependence, uncomplicated; F17.210 Nicotine dependence, cigarettes, uncomplicated; F20.9 Schizophrenia, unspecified; F19.282 Other psychoactive substance dependence with psychoactive substance-induced sleep disorder; I10 Essential (primary) hypertension; N40.0 Benign prostatic hyperplasia without lower urinary tract symptoms
CPT/HCPCS: 36415; 80053; 80307; 85027; 87635; 93005; 93010

== ENCOUNTER 2023-10-04 22:57 | Inpatient (IN) | payer BC ==
[2023-10-04 23:32] VITALS: BMI 30.9
[2023-10-04] MEDS ORDERED: BENZONATATE 200 MG CAPSULE PO PRN (23:54)
[2023-10-04] MEDS ORDERED: LOPERAMIDE HCL 2 MG CAPSULE PO PRN (23:54)
[2023-10-04] MEDS ORDERED: guaiFENesin 600 MG TABLET.ER (FP) PO PRN (23:54)
[2023-10-04] MEDS ORDERED: POLYETHYLENE GLYCOL (HEALTHYLAX) 3350 17 GM PACKET PO PRN (23:54)
[2023-10-04] MEDS ORDERED: IBUPROFEN 400 MG TABLET (FP) PO PRN (23:54)
[2023-10-04] MEDS ORDERED: NALOXONE (NARCAN) HCL 4 MG/0.1 ML SPRAY NS PRN (23:54)
[2023-10-04] MEDS ORDERED: NALOXONE HCL 0.4 MG/ML VIAL IM PRN (23:54)
[2023-10-04] MEDS ORDERED: MAGNESIUM HYDROX 2400MG/30ML ORAL SUSPENSION 30 ML CUP PO PRN (23:54)
[2023-10-05] MEDS ORDERED: cloNIDine HCL 0.1 MG TABLET ONE (00:29)
[2023-10-05] MEDS ORDERED: ACETAMINOPHEN 325 MG TABLET (FP) ONE (00:30)
[2023-10-05] MEDS ORDERED: MELATONIN 5 MG TABLETS ONE (00:30)
[2023-10-05] MEDS ORDERED: hydrOXYzine PAMOATE 25 MG CAPSULE (FP) PO ONE (00:30)
[2023-10-05] MEDS ORDERED: ONDANSETRON *ODT* 4 MG TABLET ONE (00:30)
[2023-10-05] MEDS: cloNIDine HCL 0.1 MG TABLET PO ONE ×2 (00:38→06:29)
[2023-10-05] MEDS: ACETAMINOPHEN 325 MG TABLET (FP) PO PRN (00:38)
[2023-10-05] MEDS: hydrOXYzine PAMOATE 25 MG CAPSULE (FP) PO PRN (00:39)
[2023-10-05] MEDS: MELATONIN 5 MG TABLETS PO SCH (00:39)
[2023-10-05] MEDS: ONDANSETRON *ODT* 4 MG TABLET SL PRN (00:39)
[2023-10-05] MEDS: IBUPROFEN 600 MG TABLET (FP) PO PRN (06:28)
[2023-10-05] MEDS: TAMSULOSIN HCL 0.4 MG CAP PO SCH (07:46)
[2023-10-05 08:46] LABS: HEMOGLOBIN 13.4 GM/dL (11.7-16.9); MCH 28.3 pg (25.7-33.7); MCHC 34.3 g/dl (32.0-35.9); MEAN CELL VOLUME 82.3 fl (80-96); MEAN PLT VOLUME 8.9 fl (7.5-11.1); PLATELET COUNT 276 10^3/uL (134-434); RBC 4.74 M/mm3 (4.00-5.60); RDW 14.6 % (11.9-15.9)
[2023-10-05 08:54] LABS: CHLORIDE 107 mmol/L (98-107); POTASSIUM 4.2 mmol/L (3.5-5.1); SODIUM 138 mmol/L (136-145)
[2023-10-05 09:01] LABS: ALBUMIN 3.8 g/dl (3.4-5.0); ANION GAP 7 mmol/L (4-13); BLOOD UREA NITROGEN 10.5 mg/dL (7-18); CALCIUM 9.4 mg/dL (8.5-10.1); CO2 24 mmol/L (21-32); GLUCOSE,RANDOM 98 mg/dL (74-106)
[2023-10-05 09:02] LABS: SGOT/AST 17 U/L (15-37); SGPT/ALT 30 U/L (13-61)
[2023-10-05 09:04] LABS: BILIRUBIN,TOTAL 0.4 mg/dL (0.2-1)
[2023-10-05 09:05] LABS: ALK PHOS 72 U/L (45-117)
[2023-10-05] MEDS: amLODIPine BESYLATE 10 MG TABLET (FP) PO SCH (09:17)
[2023-10-05] MEDS: PRENATAL VITAMINS W/ FOLIC ACID TABLET (FP) PO SCH (09:17)
[2023-10-05] MEDS: NICOTINE 14 MG/24 HOURS TOPICAL PATCH TD SCH (09:17)
[2023-10-05] MEDS: LOSARTAN POTASSIUM 50 MG TABLET PO SCH (09:17)
[2023-10-05] MEDS: metoPROLOL SUCCINATE 25 MG TAB.SR.24H (FP) PO SCH (09:23)
[2023-10-05] MEDS: ASPIRIN 81 MG CHEWABLE TABLETS PO ONE (09:25)
[2023-10-05] MEDS: TUBERCULIN PPD 5 TU/0.1ML SYRINGE (IN PATIENT USE ONLY) ID ONE (10:16)
[2023-10-05 16:22] LABS: SYPHILIS W/ RPR CONF NON-REACTIVE (NONREACTIVE)
[2023-10-05] MEDS: THIAMINE 100 MG TABLET PO SCH (21:37)
[2023-10-05 22:14] LABS: EPI CELLS 11 /uL (0-25.1); HYALINE CASTS 8 /uL (0-3.1); URINE APPEARANCE TURBID; URINE BACTERIA 196 /uL (0-1359); URINE BILIRUBIN 1+ (NEGATIVE); URINE COLOR DK YELLOW; URINE GLUCOSE (UA) NEGATIVE (NEGATIVE); URINE KETONE TRACE (NEGATIVE); URINE LEUK ESTERASE TRACE (NEGATIVE); URINE NITRITE NEGATIVE (NEGATIVE); URINE PROTEIN 1+ (NEGATIVE); URINE WBC 139 /uL (0-25.8)
[2023-10-05 22:48] LABS: URINE CRYSTALS MANY AMORPHOUS URATE /hpf; URINE RBC 29.8 /uL (0-23.9)
[2023-10-06] MEDS: amLODIPine BESYLATE 10 MG TABLET (FP) PO SCH (09:02)
[2023-10-06] MEDS: NICOTINE POLACRILEX 2 MG GUM BUC PRN (09:03)
[2023-10-07] MEDS: cloNIDine HCL 0.1 MG TABLET PO PRN (12:41)
[2023-10-08] MEDS: BENZOCAINE/MENTHOL (CHLORASEPTIC ) LOZENGE MM PRN (06:18)
[2023-10-11] MEDS: ARIPiprazole 5 MG TABLET PO ONE (12:18)
[2023-10-11] MEDS: NALTREXONE HCL 50 MG TABLET PO ONE (15:36)
[2023-10-11] MEDS: HYDROCHLOROTHIAZIDE 12.5 MG CAPSULE (FP) PO SCH (15:36)
[2023-10-11] MEDS: DIVALPROEX SODIUM 500 MG TABLET E.C. PO SCH (22:31)
[2023-10-12 00:37] LABS: URINE APPEARANCE CLEAR; URINE COLOR YELLOW
[2023-10-12 00:38] LABS: URINE BILIRUBIN NEGATIVE (NEGATIVE); URINE GLUCOSE (UA) NEGATIVE (NEGATIVE); URINE KETONE NEGATIVE (NEGATIVE); URINE NITRITE NEGATIVE (NEGATIVE); URINE PROTEIN NEGATIVE (NEGATIVE); URINE UROBILINOGEN 0.2 mg/dL (0.2-1.0)
[2023-10-12 00:39] LABS: URINE LEUK ESTERASE NEGATIVE (NEGATIVE)
[2023-10-12] MEDS: ARIPiprazole 10 MG TABLET PO SCH (09:08)
[2023-10-12] MEDS: CITALOPRAM HYDROBROMIDE 10 MG TABLET PO SCH (09:09)
[2023-10-12] MEDS ORDERED: ARIPiprazole 5 MG TABLET PO ONE (10:40)
[2023-10-14] MEDS: MAG HYDROX/AL HYDROX/SIMETH 30 ML UNIT-DOSE CUP PO PRN (09:57)
[2023-10-18 20:55] VITALS: RESP 18
[2023-10-19 07:34] VITALS: PULSE 80; TEMP 98.1
[2023-10-19 09:07] VITALS: BP 165/89
[2023-10-19] MEDS: NALTREXONE MICROSPHERES (VIVITROL) 380 MG DISP.SYRIN IM ONE (09:15)
== END 2023-10-19 12:50 | disposition home or self-care (01) | DRG 772 ==
LOC: YASAS 22:57 → Y3E 10-05 01:01
PROVIDERS: ADMIT Allergy & Immunology; ATTEND Psychiatry & Neurology Pain Medicine
PROC: HZ42ZZZ Group Counseling for Substance Abuse Treatment, Cognitive-Behavioral (ICD-10-PCS; principal; 2023-10-05)
DX: F10.20 Alcohol dependence, uncomplicated (principal); F14.20 Cocaine dependence, uncomplicated; F12.20 Cannabis dependence, uncomplicated; F19.282 Other psychoactive substance dependence with psychoactive substance-induced sleep disorder; F31.9 Bipolar disorder, unspecified; F20.9 Schizophrenia, unspecified; F17.210 Nicotine dependence, cigarettes, uncomplicated; I71.21 Aneurysm of the ascending aorta, without rupture; I10 Essential (primary) hypertension; K21.9 Gastro-esophageal reflux disease without esophagitis; M54.50 Low back pain, unspecified; G89.29 Other chronic pain; N40.0 Benign prostatic hyperplasia without lower urinary tract symptoms
CPT/HCPCS: 36415; 80053; 80164; 80305; 80307; 81003; 85027; 86780; 86803; 87086; 87811; 93005; 93010; Q0162

== ENCOUNTER 2024-09-08 09:09 | Inpatient (IN) | payer OTHER ==
[2024-09-08 09:30] VITALS: BMI 34.5
[2024-09-08] MEDS ORDERED: MAGNESIUM HYDROX 2400MG/30ML ORAL SUSPENSION 30 ML CUP PO PRN (09:37)
[2024-09-08] MEDS ORDERED: hydrOXYzine PAMOATE 25 MG CAPSULE (FP) PO PRN (09:37)
[2024-09-08] MEDS ORDERED: LOPERAMIDE HCL 2 MG CAPSULE PO PRN (09:37)
[2024-09-08] MEDS ORDERED: DICYCLOMINE HCL 10 MG CAPSULE PO PRN (09:37)
[2024-09-08] MEDS ORDERED: NALOXONE (NARCAN) HCL 4 MG/0.1 ML SPRAY NS PRN (09:37)
[2024-09-08] MEDS ORDERED: POLYETHYLENE GLYCOL (HEALTHYLAX) 3350 17 GM PACKET PO PRN (09:37)
[2024-09-08] MEDS ORDERED: BENZONATATE 200 MG CAPSULE PO PRN (09:37)
[2024-09-08] MEDS ORDERED: BISMUTH SUBSALICYLATE 524 MG/30 ML PO PRN (09:37)
[2024-09-08] MEDS ORDERED: BENZOCAINE/MENTHOL (CHLORASEPTIC ) LOZENGE MM PRN (09:37)
[2024-09-08] MEDS ORDERED: ONDANSETRON *ODT* 4 MG TABLET SL PRN (09:37)
[2024-09-08] MEDS ORDERED: guaiFENesin 600 MG TABLET.ER (FP) PO PRN (09:37)
[2024-09-08] MEDS ORDERED: NICOTINE POLACRILEX 2 MG LOZENGE BC PRN (09:37)
[2024-09-08] MEDS ORDERED: PRENATAL VITAMINS W/ FOLIC ACID TABLET (FP) PO ONE (10:19)
[2024-09-08] MEDS: PRENATAL VITAMINS W/ FOLIC ACID TABLET (FP) PO SCH (10:22)
[2024-09-08] MEDS: PATIENT'S OWN MEDICATION (NON-FORMULARY) (Amlodipine/Valsartan [Exforge 5-160 Mg Tablet] 1 PO SCH (11:14)
[2024-09-08] MEDS: IBUPROFEN 600 MG TABLET (FP) PO PRN (15:23)
[2024-09-08] MEDS: METHOCARBAMOL 500 MG TABLET PO PRN (15:23)
[2024-09-08] MEDS: THIAMINE 100 MG TABLET PO SCH (22:30)
[2024-09-08] MEDS: MELATONIN 5 MG TABLETS PO SCH (22:30)
[2024-09-09] MEDS: IBUPROFEN 400 MG TABLET (FP) PO PRN (05:31)
[2024-09-09] MEDS: TAMSULOSIN HCL 0.4 MG CAP PO SCH (07:49)
[2024-09-09] MEDS: MAG HYDROX/AL HYDROX/SIMETH 30 ML UNIT-DOSE CUP PO PRN (08:49)
[2024-09-09 10:11] LABS: MCHC 33.4 g/dl (32.3-36.5); MEAN CELL VOLUME 81.8 fl (79.0-92.2); MEAN PLT VOLUME 11.0 fl (9.4-12.4); RDW 13.2 % (12.2-16.1)
[2024-09-09 10:43] LABS: CO2 22 mmol/L (21-32); GLUCOSE,RANDOM 98 mg/dL (74-106)
[2024-09-09 10:45] LABS: CREATININE 0.9 mg/dL (0.55-1.3); SGOT/AST 19 U/L (15-37); SGPT/ALT 28 U/L (13-61)
[2024-09-09 10:47] LABS: TOT PROT 7.3 g/dl (6.4-8.2)
[2024-09-09 10:48] LABS: ALK PHOS 80 U/L (45-117)
[2024-09-09] MEDS: NICOTINE POLACRILEX 2 MG GUM BUC PRN (11:22)
[2024-09-09 16:26] LABS: HIV INTERPRETATION PRESUMPTIVE POSITIVE (NEGATIVE)
[2024-09-09] MEDS: ACETAMINOPHEN 325 MG TABLET (FP) PO PRN (22:17)
[2024-09-12 08:55] VITALS: RESP 16
[2024-09-12] MEDS: VALSARTAN 160 MG TABLET PO SCH (12:01)
[2024-09-12] MEDS: amLODIPine BESYLATE 5 MG TABLET (FP) PO SCH (12:01)
[2024-09-12 12:37] VITALS: BP 157/80; PULSE 65; TEMP 97.7
== END 2024-09-12 12:55 | disposition other institution (70) | DRG 775 ==
LOC: YASAS 09:09 → Y6N 10:16
PROVIDERS: ADMIT Neuromusculoskeletal Medicine & OMM; ATTEND Allergy & Immunology
PROC: HZ2ZZZZ Detoxification Services for Substance Abuse Treatment (ICD-10-PCS; principal; 2024-09-08)
DX: F10.230 Alcohol dependence with withdrawal, uncomplicated (principal); F12.20 Cannabis dependence, uncomplicated; F17.210 Nicotine dependence, cigarettes, uncomplicated; F19.282 Other psychoactive substance dependence with psychoactive substance-induced sleep disorder; F31.9 Bipolar disorder, unspecified; U07.1 COVID-19; Z21 Asymptomatic human immunodeficiency virus [HIV] infection status; I10 Essential (primary) hypertension; N40.0 Benign prostatic hyperplasia without lower urinary tract symptoms; Z86.59 Personal history of other mental and behavioral disorders; Z86.79 Personal history of other diseases of the circulatory system
CPT/HCPCS: 36415; 80053; 80305; 80307; 85027; 86780; 87389; 87811; 93005; 93010